=== PATIENT | female | born 1960 | race American Indian/Alaskan Native ===

== ENCOUNTER 2020-11-24 21:43 | Inpatient (IN) | payer OTHER ==
--- NOTE | 2020-11-24 22:09 | Emergency Department Report ---
- General Stated complaint: HYPERGLYCEMIA Time Seen by Provider: 11/24/20 21:56 - History of Present Illness Initial comments: 60-year-old female, history of hypertension and diabetes, presents to ED with generalized weakness x6 days. Patient states she has been feeling weak, unable to go to work. Patient states her daughter called EMS so that patient could come to the ER for evaluation. EMS reports Accu-Chek read high. EMS also reported normal vitals en route. However, as nurse placed patient on monitor, her O2 sats showed 57% on room air. She denies any fever, cough, shortness of breath, nausea, vomiting, headache, body aches, loss of smell or taste. Patient denies any known contact with anyone who has tested positive for COVID-19. MD Complaint: generalized weakness -: days(s) (6) Location: generalized Severity: moderate Quality: other (painless) Consistency: constant Improves with: none Worsens with: none Associated Symptoms: denies other symptoms. denies: chest pain, fever/chills, headaches, nausea/vomiting, shortness of breath - Related Data Allergies Allergy/AdvReac Type Severity Reaction Status Date / Time No Known Allergies Allergy Verified 11/25/20 00:33 ED Review of Systems ROS: Stated complaint: HYPERGLYCEMIA Other details as noted in HPI Comment: All other systems reviewed and negative Constitutional: malaise, weakness. denies: chills, fever ENT: other (Denies loss of smell or taste) Respiratory: denies: cough, shortness of breath Cardiovascular: denies: chest pain Gastrointestinal: denies: abdominal pain, nausea, vomiting, diarrhea Musculoskeletal: denies: myalgia Neurological: denies: headache ED Physical Exam - General General appearance: alert, in no apparent distress - Head Head exam: Present: atraumatic, normocephalic - Eye Eye exam: Present: normal appearance - ENT ENT exam: Present: mucous membranes moist - Neck Neck exam: Present: normal inspection - Respiratory Respiratory exam: Present: normal lung sounds bilaterally. Absent: respiratory distress - Cardiovascular Cardiovascular Exam: Present: regular rate, normal rhythm - GI/Abdominal GI/Abdominal exam: Present: soft. Absent: distended, tenderness - Extremities Exam Extremities exam: Present: normal inspection - Neurological Exam Neurological exam: Present: alert, oriented X3, other (mentation is somewhat slow) - Psychiatric Psychiatric exam: Present: normal affect, normal mood - Skin Skin exam: Present: warm, dry, intact, normal color ED Course Vital Signs 11/24/20 11/24/20 11/24/20 22:04 22:22 22:39 Temperature 99 F Pulse Rate 74 Respiratory 20 20 Rate Blood Pressure Blood Pressure 186/94 [Right] O2 Sat by Pulse 57 L 95 100 Oximetry 11/24/20 11/24/20 11/24/20 22:45 23:00 23:15 Temperature Pulse Rate 72 81 80 Respiratory 20 20 18 Rate Blood Pressure 211/92 183/87 198/96 Blood Pressure [Right] O2 Sat by Pulse 100 75 L 90 Oximetry 11/24/20 11/25/20 11/25/20 23:30 00:00 00:03 Temperature Pulse Rate 74 76 78 Respiratory 15 22 Rate Blood Pressure 207/94 210/95 210/95 Blood Pressure [Right] O2 Sat by Pulse 99 100 Oximetry 11/25/20 11/25/20 00:31 01:01 Temperature Pulse Rate Respiratory Rate Blood Pressure 208/88 156/63 Blood Pressure [Right] O2 Sat by Pulse 100 96 Oximetry - Reevaluation(s) Reevaluation #1: 11/24/20 22:30 Pt placed on HFNC. O2 sats now 100% - Consultations Consultation #1: 11/25/20 00:01 Spoke with Simba Valente on-call physician. States patient should stay here at [facility]. ED Medical Decision Making - Lab Data Result diagrams: 11/24/20 22:32 11/24/20 22:32 - EKG Data -: EKG Interpreted by Sc EKG shows normal: sinus rhythm, axis, intervals, QRS complexes, ST-T waves Rate: normal - EKG Data Interpretation: no acute changes - Radiology Data Radiology results: report reviewed, image reviewed - Medical Decision Making 61-year-old female presents to ED for generalized weakness. Patient found to be hypoxic, with room air sats of 57%. Patient placed on high flow nasal cannula which improved oxygen to 100%. ABG shows pO2 of 38. Chest x-ray shows bilateral pneumonia. This is likely COVID-19. Patient denies any other symptoms such as cough, fever, vomiting, diarrhea, loss of smell or taste. Blood cultures drawn. Rocephin, azithromycin, Decadron given. Lactic acid is normal. Remainder of labs show some acute renal failure with BUN and creatinine of 42 and 2.1. Troponin is slightly elevated at 0.076, possibly due to renal function. Patient denies any chest pain. EKG shows no ST changes. Glucose is elevated at 720, however patient does not appear to be in DKA. There are no serum ketones present, bicarb is normal, anion gap is normal. Patient given 500 cc bolus of IV fluids and 10 units of insulin. Patient also hypertensive with systolic BP in the 200s. IV hydralazine 10 mg given with improvement of blood pressure. Patient will be admitted to hospitalist, Dr. Rao, for further management. - Differential Diagnosis COVID-19, DKA, hyperglycemia Critical Care Time: Yes Critical care time in (mins) excluding proc time.: 35 Critical care attestation.: If time is entered above; I have spent that time in minutes in the direct care of this critically ill patient, excluding procedure time. Critical Care Time: 35 min ED Disposition Clinical Impression: Acute respiratory failure with hypoxia, Pneumonia, Suspected 2019 novel coronavirus infection, Acute renal failure, Hyperglycemia, Elevated troponin, Hypertensive urgency Disposition: OP ADMIT IP TO THIS HOSP Is pt being admited?: Yes Condition: Stable Time of Disposition: 00:01
[2020-11-24 22:50] LABS: ABG HCO3 23.6 mmol/L (20.0-26.0); ABG Methemoglobin 0.8 % (0.0-1.5); ABG PCO2 38.7 mm Hg; ABG PH 7.403 pH Units (7.350-7.450)
[2020-11-24 22:55] LABS: ABG PO2 38.2 mm Hg (80.0-90.0)
[2020-11-24] MEDS ORDERED: AZITHROMYCIN 250 MG TAB PO ONE (23:05)
[2020-11-24] MEDS ORDERED: cefTRIAXone/NS 1 GM/50 ML 1 GM/50 ML BAG IV ONE (23:05)
[2020-11-24] MEDS ORDERED: DEXAMETHASONE 4 MG TAB PO ONE (23:05)
[2020-11-24 23:14] LABS: Basophils % (Auto) 0.2 % (0.0-1.8); Hematocrit 34.1 % (30.3-42.9); Hemoglobin 10.7 gm/dl (10.1-14.3); Lymphocytes # (Auto) 0.7 K/mm3 (1.2-5.4); Lymphocytes % (Auto) 6.9 % (13.4-35.0); Mean Corpuscular HGB Conc 31 % (30-34); Mean Corpuscular Volume 88 fl (79-97); Monocytes # (Auto) 0.7 K/mm3 (0.0-0.8); Monocytes % (Auto) 6.4 % (0.0-7.3); Platelet Count 430 K/mm3 (140-440); Red Blood Count 3.86 M/mm3 (3.65-5.03); Red Cell Distribution Width 13.4 % (13.2-15.2)
[2020-11-24 23:21] LABS: INR 1.08 (0.87-1.13)
[2020-11-24 23:22] LABS: Partial Thromboplastin Time 31.1 Sec. (24.2-36.6)
[2020-11-24 23:23] LABS: Albumin 2.5 g/dL (3.9-5); Calcium 7.7 mg/dL (8.4-10.2)
--- NOTE | 2020-11-24 23:34 | XRay Report ---
CHEST 1 VIEW 11:04 PM INDICATION / CLINICAL INFORMATION: Hypoxia and weakness. COMPARISON: None available. FINDINGS: SUPPORT DEVICES: None. HEART / MEDIASTINUM: The heart size is borderline. Pulmonary vasculature is difficult to evaluate. Th ere is mild calcification in the aortic arch without aneurysm. LUNGS / PLEURA: There are multifocal patchy parenchymal opacities scattered throughout both lungs, ba silar predominant. No pleural effusion. No pneumothorax. ADDITIONAL FINDINGS: No significant additional findings. IMPRESSION: 1. Moderate multifocal patchy parenchymal opacities bilaterally are nonspecific. Atypical causes of p neumonia, including viral pneumonia, should be considered. Signer Name: Isaac Castelan MD Signed: 11/24/2020 11:30 PM Workstation Name: [id number]
[2020-11-24 23:35] LABS: Chol/HDL Ratio 3.88 %
[2020-11-24 23:35] LABS: Bilirubin,Urine NEG (Negative); Blood,Urine NEG (Negative); Color,Urine Yellow (Yellow); Mucus,Urine FEW /HPF; Urobilinogen,Urine < 2.0 mg/dL (<2.0)
[2020-11-24 23:36] LABS: C-Reactive Protein 32.5 mg/dL (0.00-1.30)
[2020-11-24] MEDS ORDERED: SODIUM CHLORIDE 0.9% 500 ML 500 ML IV ONE (23:38)
[2020-11-24] MEDS ORDERED: INSULIN REGULAR, HUMAN 100 UNITS/1 ML IV ONE (23:38)
[2020-11-24 23:41] LABS: Protein,Urine >500 mg/dL (Negative)
[2020-11-24] MEDS ORDERED: hydrALAZINE 20 MG/1 ML INJ IV ONE (23:42)
[2020-11-25] MEDS ORDERED: ONDANSETRON 4 MG/2 ML INJ IV PRN (00:25)
[2020-11-25] MEDS ORDERED: DEXTROSE 50% IN WATER (25GM) 50 ML SYRINGE IV PRN (00:25)
[2020-11-25] MEDS ORDERED: MAGNESIUM HYDROXIDE (MOM) ORAL LIQD UDC PO PRN (00:25)
[2020-11-25] MEDS ORDERED: ACETAMINOPHEN 325 MG TAB PO PRN (00:25)
[2020-11-25] MEDS ORDERED: MORPHINE 2 MG/1 ML INJ IV PRN (00:25)
--- NOTE | 2020-11-25 00:40 | History and Physical Report ---
History of Present Illness Date of examination: 11/25/20 Date of admission: 11/25/20 00:03 Chief complaint: Generalized body weakness History of present illness: C1-year-old female with known history of hypertension and diabetes mellitus presenting to the emergency room today complaining of generalized weakness which has been ongoing for about 6 days. She denies any fever or chills, no cough , no shortness of breath, no chest pain, no nausea vomiting, no diarrhea. Patient denies any sick contacts and no recent travel, denies any contact with anyone with COVID-19. She has not been able to go to work because of generalized weakness. She was encouraged to report to the emergency room by her daughter. EMS was subsequently called and Accu-Chek was said to be high. Upon arrival in the emergency room initial oxygen saturation was said to be in the 50s on room air. She was immediately placed on high flow oxygen with significant improvement. Work-up in the emergency room, chest x-ray reveals bilateral infiltrates concerning for viral pneumonia. Patient is being admitted with pneumonia, hypoxia and will rule out COVID-19. Past History Past Medical History: diabetes Past Surgical History: No surgical history Social history: no significant social history Family history: no significant family history Medications and Allergies Allergies Allergy/AdvReac Type Severity Reaction Status Date / Time No Known Allergies Allergy Verified 11/25/20 00:33 Active Meds: Active Medications Acetaminophen (Acetaminophen 325 Mg Tab) 650 mg PO Q4H PRN PRN Reason: Pain MILD(1-3)/Fever >100.5/YING Dextrose (Dextrose 50% In Water (25gm) 50 Ml Syringe) 50 ml IV Q30MIN PRN; Protocol PRN Reason: Hypoglycemia Heparin Sodium (Porcine) (Heparin 5,000 Unit/1 Ml Vial) 5,000 unit SUB-Q Q8HR TANYA Ceftriaxone Sodium (Rocephin/Ns 2 Gm/100 Ml) 2 gm in 100 mls @ 200 mls/hr IV Q24H TANYA; Protocol Azithromycin (Zithromax/Ns) 500 mg in 250 mls @ 250 mls/hr IV Q24H TANYA; Protocol Insulin Human Lispro (Insulin Lispro 100 Unit/Ml) 0 unit SUB-Q ACHS TANYA; Protocol Magnesium Hydroxide (Magnesium Hydroxide (Mom) Oral Liqd Udc) 30 ml PO Q4H PRN PRN Reason: Constipation Morphine Sulfate (Morphine 2 Mg/1 Ml Inj) 2 mg IV Q4H PRN PRN Reason: Pain, Moderate (4-6) Ondansetron HCl (Ondansetron 4 Mg/2 Ml Inj) 4 mg IV Q8H PRN PRN Reason: Nausea And Vomiting Sodium Chloride (Sodium Chloride 0.9% 10 Ml Flush Syringe) 10 ml IV BID TANYA Sodium Chloride (Sodium Chloride 0.9% 10 Ml Flush Syringe) 10 ml IV PRN PRN PRN Reason: LINE FLUSH Review of Systems Constitutional: fatigue, weakness, no fever, no chills Ears, nose, mouth and throat: no nasal congestion, no sore throat Cardiovascular: no chest pain, no palpitations Respiratory: no cough, no shortness of breath Gastrointestinal: no abdominal pain, no nausea, no vomiting, no diarrhea Genitourinary Female: no flank pain, no dysuria, no hematuria, no nocturia Musculoskeletal: no neck pain, no low back pain Integumentary: no rash, no pruritis Neurological: no headaches, no confusion Psychiatric: no anxiety, no depression Exam - Constitutional Vitals: Temp Pulse Resp BP Pulse Ox 99 F 78 22 210/95 100 11/24/20 22:04 11/25/20 00:03 11/25/20 00:00 11/25/20 00:03 11/25/20 00:00 General appearance: Present: mild distress, well-nourished - EENT Eyes: Present: PERRL, EOM intact. Absent: scleral icterus ENT: hearing intact, clear oral mucosa, dentition normal - Neck Neck: Present: supple, normal ROM - Respiratory Respiratory effort: normal Respiratory: bilateral: diminished - Cardiovascular Rhythm: regular Heart Sounds: Present: S1 & S2. Absent: gallop, systolic murmur, diastolic murmur, rub, click - Extremities Extremities: no ischemia, pulses intact, pulses symmetrical, No edema, normal temperature, normal color, Full ROM Peripheral Pulses: within normal limits - Abdominal General gastrointestinal: Present: soft, non-tender, non-distended, normal bowel sounds. Absent: mass - Integumentary Integumentary: Present: clear, warm, dry. Absent: rash - Musculoskeletal Musculoskeletal: strength equal bilaterally - Psychiatric Psychiatric: appropriate mood/affect, intact judgment & insight, memory intact, cooperative - Neurologic Neurologic: CNII-XII intact, no focal deficits, moves all extremities HEART Score - HEART Score Troponin: Troponin T 0.076 ng/mL (0.00-0.029) H 11/24/20 22:32 Results - Labs CBC & Chem 7: 11/24/20 22:32 11/24/20 22:32 Labs: Abnormal lab results 11/24/20 11/24/20 11/24/20 Range/Units 22:30 22:32 22:32 Lymph % (Auto) 6.9 L (13.4-35.0) % Lymph # (Auto) 0.7 L (1.2-5.4) K/mm3 Seg Neutrophils % 86.5 H (40.0-70.0) % Seg Neutrophils # 8.8 H (1.8-7.7) K/mm3 D-Dimer (0-234) ng/mlDDU ABG pO2 38.2 L* (80.0-90.0) mm Hg ABG O2 Saturation 67.0 L (95.0-99.0) % ABG Hemoglobin 9.3 L (12.0-16.0) gm/dl Oxyhemoglobin 65.3 L (95.0-99.0) % Sodium 133 L (137-145) mmol/L Chloride 94.8 L (98-107) mmol/L BUN 42 H (7-17) mg/dL Creatinine 2.1 H (0.6-1.2) mg/dL Glucose 720 H* (65-100) mg/dL Calcium 7.7 L (8.4-10.2) mg/dL Ferritin (10.0-200.0) ng/mL Lactate Dehydrogenase (91-180) units/L Troponin T 0.076 H (0.00-0.029) ng/mL C-Reactive Protein (0.00-1.30) mg/dL Albumin 2.5 L (3.9-5) g/dL Triglycerides 195 H (2-149) mg/dL 11/24/20 11/24/20 11/24/20 Range/Units 22:32 22:32 22:32 Lymph % (Auto) (13.4-35.0) % Lymph # (Auto) (1.2-5.4) K/mm3 Seg Neutrophils % (40.0-70.0) % Seg Neutrophils # (1.8-7.7) K/mm3 D-Dimer 790.01 H (0-234) ng/mlDDU ABG pO2 (80.0-90.0) mm Hg ABG O2 Saturation (95.0-99.0) % ABG Hemoglobin (12.0-16.0) gm/dl Oxyhemoglobin (95.0-99.0) % Sodium (137-145) mmol/L Chloride (98-107) mmol/L BUN (7-17) mg/dL Creatinine (0.6-1.2) mg/dL Glucose (65-100) mg/dL Calcium (8.4-10.2) mg/dL Ferritin 637.1 H (10.0-200.0) ng/mL Lactate Dehydrogenase 770 H (91-180) units/L Troponin T (0.00-0.029) ng/mL C-Reactive Protein 32.50 H (0.00-1.30) mg/dL Albumin (3.9-5) g/dL Triglycerides (2-149) mg/dL Assessment and Plan - Patient Problems (1) Pneumonia Current Visit: Yes Status: Acute Plan to address problem: Patient started on empiric IV antibiotics. We will await culture results. (2) Suspected 2019 novel coronavirus infection Current Visit: Yes Status: Acute Plan to address problem: Patient placed on isolation precautions. Will await COVID-19 testing. Patient has been placed on IV steroid. Consult placed to infectious disease for evaluation and recommendation. (3) Acute respiratory failure with hypoxia Current Visit: Yes Status: Acute Plan to address problem: Secondary to the underlying pneumonia. Patient placed on high flow oxygen. We will keep O2 saturation greater or equal to 94%. Consult also placed to senior packaging engineer for evaluation. (4) Acute renal failure Current Visit: Yes Status: Acute Plan to address problem: Patient will be given gentle IV hydration. Will monitor BUN and creatinine. Consult placed to nephrology for evaluation. (5) Elevated troponin Current Visit: Yes Status: Acute Plan to address problem: Possibly secondary to the renal insufficiency. Will monitor troponin levels. (6) DVT prophylaxis Current Visit: Yes Status: Acute Plan to address problem: Patient placed on subcutaneous heparin. (7) Full code status Current Visit: Yes Status: Acute Plan to address problem: Patient is full code.
[2020-11-25] MEDS ORDERED: INSULIN REGULAR, HUMAN 100 UNITS/1 ML IV ONE ×2 (00:50→08:45)
[2020-11-25] MEDS: HEPARIN 5,000 UNIT/1 ML VIAL SUB-Q SCH ×3 (05:54→21:41)
[2020-11-25] MEDS: INSULIN LISPRO 100 UNIT/ML SUB-Q SCH ×4 (08:41→21:59)
[2020-11-25] MEDS ORDERED: AZITHROMYCIN/NS 500 MG/250 ML 500 MG/250 ML BAG IV SCH (10:00)
[2020-11-25] MEDS: dexAMETHasone 4 MG/ML VIAL IV SCH (10:12)
--- NOTE | 2020-11-25 11:40 | Consultation ---
History of Present Illness Consult date: 11/25/20 Requesting physician: MYAH RASCON Reason for consult: pneumonia, other (Acute Hypoxemic Respiratory Failure; PUI COVID-19) History of present illness: PULMONARY/CCM CONSULT NOTE (Full dictation # [id number]) Please see dictated notes for full details Past History Past Medical History: diabetes Past Surgical History: No surgical history Social history: no significant social history Family history: no significant family history Medications and Allergies Allergies Allergy/AdvReac Type Severity Reaction Status Date / Time No Known Allergies Allergy Verified 11/25/20 00:33 Home Medications Medication Instructions Recorded Confirmed Last Taken Type Metformin HCl [metFORMIN] 1,000 mg PO BID 11/25/20 11/25/20 Unknown History amLODIPine [Norvasc] 5 mg PO DAILY 11/25/20 11/25/20 Unknown History glipiZIDE [Glucotrol] 20 mg PO BID 11/25/20 11/25/20 Unknown History hydroCHLOROthiazide 12.5 mg PO BID 11/25/20 11/25/20 Unknown History [Hydrochlorothiazide] lisinopriL [Zestril] 20 mg PO BID 11/25/20 11/25/20 Unknown History Active Meds: Active Medications Acetaminophen (Acetaminophen 325 Mg Tab) 650 mg PO Q4H PRN PRN Reason: Pain MILD(1-3)/Fever >100.5/YING Azithromycin (Azithromycin 250 Mg Tab) 500 mg PO QHS TANYA Stop: 11/28/20 22:01 Dexamethasone (Dexamethasone 4 Mg/Ml Vial) 6 mg IV Q24HR TANYA Stop: 12/03/20 10:01 Last Admin: 11/25/20 10:12 Dose: 6 mg Documented by: Dextrose (Dextrose 50% In Water (25gm) 50 Ml Syringe) 50 ml IV Q30MIN PRN; Protocol PRN Reason: Hypoglycemia Heparin Sodium (Porcine) (Heparin 5,000 Unit/1 Ml Vial) 5,000 unit SUB-Q Q8HR TANYA Last Admin: 11/25/20 05:54 Dose: 5,000 unit Documented by: Ceftriaxone Sodium (Rocephin/Ns 2 Gm/100 Ml) 2 gm in 100 mls @ 200 mls/hr IV Q24H TANYA; Protocol Sodium Chloride (Nacl 0.9% 1000 Ml) 1,000 mls @ 75 mls/hr IV DIRECT TANYA REMDESIVIR 200 mg/ Sodium (Chloride) 250 mls @ 500 mls/hr IV ONCE ONE Stop: 11/25/20 11:39 REMDESIVIR 100 mg/ Sodium (Chloride) 250 mls @ 500 mls/hr IV Q24HR@2100 [facility] Stop: 11/29/20 21:29 Insulin Human Lispro (Insulin Lispro 100 Unit/Ml) 0 unit SUB-Q ACHS [facility]; Protocol Last Admin: 11/25/20 08:41 Dose: 8 unit Documented by: Magnesium Hydroxide (Magnesium Hydroxide (Mom) Oral Liqd Udc) 30 ml PO Q4H PRN PRN Reason: Constipation Morphine Sulfate (Morphine 2 Mg/1 Ml Inj) 2 mg IV Q4H PRN PRN Reason: Pain, Moderate (4-6) Ondansetron HCl (Ondansetron 4 Mg/2 Ml Inj) 4 mg IV Q8H PRN PRN Reason: Nausea And Vomiting Sodium Chloride (Sodium Chloride 0.9% 10 Ml Flush Syringe) 10 ml IV BID [facility] Last Admin: 11/25/20 10:13 Dose: 10 ml Documented by: Sodium Chloride (Sodium Chloride 0.9% 10 Ml Flush Syringe) 10 ml IV PRN PRN PRN Reason: LINE FLUSH Sodium Chloride (Sodium Chloride 0.9% 50 Ml Ivpb) 50 ml IV Q24HR@2100 [facility] Stop: 11/29/20 21:01 Physical Examination Vital signs: Vital Signs Temp Pulse Resp BP Pulse Ox 99 F 74 20 186/94 57 L 11/24/20 22:04 11/24/20 22:04 11/24/20 22:04 11/24/20 22:04 11/24/20 22:04 Results - Laboratory Findings CBC and BMP: 11/24/20 22:32 11/24/20 22:32 ABG ABG pH 7.403 pH Units (7.350-7.450) 11/24/20 22:30 ABG pCO2 38.7 mm Hg 11/24/20 22:30 ABG pO2 38.2 mm Hg (80.0-90.0) L* 11/24/20 22:30 ABG O2 Saturation 67.0 % (95.0-99.0) L 11/24/20 22:30 PT/INR, D-dimer PT 13.8 Sec. (12.2-14.9) 11/24/20 22:32 INR 1.08 (0.87-1.13) 11/24/20 22:32 D-Dimer 790.01 ng/mlDDU (0-234) H 11/24/20 22:32 Abnormal lab findings: Abnormal Labs 11/24/20 11/24/20 11/24/20 22:30 22:32 22:32 Lymph % (Auto) 6.9 L Lymph # (Auto) 0.7 L Seg Neutrophils % 86.5 H Seg Neutrophils # 8.8 H D-Dimer ABG pO2 38.2 L* ABG O2 Saturation 67.0 L ABG Hemoglobin 9.3 L Oxyhemoglobin 65.3 L Sodium 133 L Chloride 94.8 L BUN 42 H Creatinine 2.1 H Glucose 720 H* POC Glucose Hemoglobin A1c Lactic Acid Calcium 7.7 L Ferritin Lactate Dehydrogenase Troponin T 0.076 H C-Reactive Protein Albumin 2.5 L Triglycerides 195 H 11/24/20 11/24/20 11/24/20 22:32 22:32 22:32 Lymph % (Auto) Lymph # (Auto) Seg Neutrophils % Seg Neutrophils # D-Dimer 790.01 H ABG pO2 ABG O2 Saturation ABG Hemoglobin Oxyhemoglobin Sodium Chloride BUN Creatinine Glucose POC Glucose Hemoglobin A1c Lactic Acid Calcium Ferritin 637.1 H Lactate Dehydrogenase 770 H Troponin T C-Reactive Protein 32.50 H Albumin Triglycerides 11/25/20 11/25/20 11/25/20 00:47 00:58 00:58 Lymph % (Auto) Lymph # (Auto) Seg Neutrophils % Seg Neutrophils # D-Dimer ABG pO2 ABG O2 Saturation ABG Hemoglobin Oxyhemoglobin Sodium Chloride BUN Creatinine Glucose POC Glucose 522 H Hemoglobin A1c 16.1 H Lactic Acid 2.60 H* Calcium Ferritin Lactate Dehydrogenase Troponin T C-Reactive Protein Albumin Triglycerides 11/25/20 07:56 Lymph % (Auto) Lymph # (Auto) Seg Neutrophils % Seg Neutrophils # D-Dimer ABG pO2 ABG O2 Saturation ABG Hemoglobin Oxyhemoglobin Sodium Chloride BUN Creatinine Glucose POC Glucose 451 H Hemoglobin A1c Lactic Acid Calcium Ferritin Lactate Dehydrogenase Troponin T C-Reactive Protein Albumin Triglycerides
--- NOTE | 2020-11-25 13:06 | Consultation ---
History of Present Illness - Reason for Consult Consult date: 11/25/20 acute renal failure Requesting physician: MYAH RASCON - History of Present Illness This is a 60 yo F with past medical history of hypertension and diabetes mellitus, who presents to [facility] ER with complaints of generalized weakness for the past week. Pt denied any fever or chills, no cough , no shortness of breath, no chest pain, no nausea vomiting, no diarrhea. Patient denies any sick contacts and no recent travel, denies any contact with anyone with COVID-19. In ER patient was found to be hypoxic with O2 sat at 50s on RA, O2 Sat improved on high flow oxygen supplementation. CXR showed moderate multifocal patchy parenchymal opacities concerning for viral pneumonia. Labs also showed elevated BUN/Cr at 42/2.1 in the setting of severe hyperglycemia with serum glucose > 700s. Lactic acid level was 2.6 improved to 1.2 with IVF boluses. elevated Ferritin 637, LDH 770, CRP 32 noted. Patient was admitted for treatment of pneumonia, hypoxia and to rule out COVID-19 infection. renal consult is requested for management of EJ. Past History Past Medical History: diabetes Past Surgical History: No surgical history Social history: no significant social history Family history: no significant family history Medications and Allergies Allergies Allergy/AdvReac Type Severity Reaction Status Date / Time No Known Allergies Allergy Verified 11/25/20 00:33 Home Medications Medication Instructions Recorded Confirmed Last Taken Type Metformin HCl [metFORMIN] 1,000 mg PO BID 11/25/20 11/25/20 Unknown History amLODIPine [Norvasc] 5 mg PO DAILY 11/25/20 11/25/20 Unknown History glipiZIDE [Glucotrol] 20 mg PO BID 11/25/20 11/25/20 Unknown History hydroCHLOROthiazide 12.5 mg PO BID 11/25/20 11/25/20 Unknown History [Hydrochlorothiazide] lisinopriL [Zestril] 20 mg PO BID 11/25/20 11/25/20 Unknown History Active Meds: Active Medications Acetaminophen (Acetaminophen 325 Mg Tab) 650 mg PO Q4H PRN PRN Reason: Pain MILD(1-3)/Fever >100.5/YING Azithromycin (Azithromycin 250 Mg Tab) 500 mg PO QHS TANYA Stop: 11/28/20 22:01 Dexamethasone (Dexamethasone 4 Mg/Ml Vial) 6 mg IV Q24HR TANYA Stop: 12/03/20 10:01 Last Admin: 11/25/20 10:12 Dose: 6 mg Documented by: Dextrose (Dextrose 50% In Water (25gm) 50 Ml Syringe) 50 ml IV Q30MIN PRN; Protocol PRN Reason: Hypoglycemia Heparin Sodium (Porcine) (Heparin 5,000 Unit/1 Ml Vial) 5,000 unit SUB-Q Q8HR [facility] Last Admin: 11/25/20 05:54 Dose: 5,000 unit Documented by: Ceftriaxone Sodium (Rocephin/Ns 2 Gm/100 Ml) 2 gm in 100 mls @ 200 mls/hr IV Q24H [facility]; Protocol Sodium Chloride (Nacl 0.9% 1000 Ml) 1,000 mls @ 75 mls/hr IV DIRECT TANYA REMDESIVIR 200 mg/ Sodium (Chloride) 250 mls @ 500 mls/hr IV ONCE ONE Stop: 11/25/20 11:39 REMDESIVIR 100 mg/ Sodium (Chloride) 250 mls @ 500 mls/hr IV Q24HR@2100 TANYA Stop: 11/29/20 21:29 Insulin Human Lispro (Insulin Lispro 100 Unit/Ml) 0 unit SUB-Q ACHS [facility]; Protocol Last Admin: 11/25/20 08:41 Dose: 8 unit Documented by: Magnesium Hydroxide (Magnesium Hydroxide (Mom) Oral Liqd Udc) 30 ml PO Q4H PRN PRN Reason: Constipation Morphine Sulfate (Morphine 2 Mg/1 Ml Inj) 2 mg IV Q4H PRN PRN Reason: Pain, Moderate (4-6) Ondansetron HCl (Ondansetron 4 Mg/2 Ml Inj) 4 mg IV Q8H PRN PRN Reason: Nausea And Vomiting Sodium Chloride (Sodium Chloride 0.9% 10 Ml Flush Syringe) 10 ml IV BID [facility] Last Admin: 11/25/20 10:13 Dose: 10 ml Documented by: Sodium Chloride (Sodium Chloride 0.9% 10 Ml Flush Syringe) 10 ml IV PRN PRN PRN Reason: LINE FLUSH Sodium Chloride (Sodium Chloride 0.9% 50 Ml Ivpb) 50 ml IV Q24HR@2100 TANYA Stop: 11/29/20 21:01 Review of Systems Constitutional: weakness, malaise, lethargy Exam - Vital Signs Vital signs: Vital Signs Temp Pulse Resp BP Pulse Ox 99 F 74 20 186/94 57 L 11/24/20 22:04 11/24/20 22:04 11/24/20 22:04 11/24/20 22:04 11/24/20 22:04 - Physical Exam Narrative exam: Exam deferred d/t PPE preservation. Results - Lab Results 11/24/20 22:32 11/24/20 22:32 Most recent lab results ABG pH 7.403 pH Units (7.350-7.450) 11/24/20 22:30 ABG pCO2 38.7 mm Hg 11/24/20 22:30 ABG pO2 38.2 mm Hg (80.0-90.0) L* 11/24/20 22:30 ABG HCO3 23.6 mmol/L (20.0-26.0) 11/24/20 22:30 ABG O2 Saturation 67.0 % (95.0-99.0) L 11/24/20 22:30 Calcium 7.7 mg/dL (8.4-10.2) L 11/24/20 22:32 Assessment and Plan - Patient Problems (1) Acute renal failure Current Visit: Yes Status: Acute Plan to address problem: Acute kidney injury likely secondary to pre-renal azotemia in the setting of severe hyperglycemia, pneumonia. UA showed significant proteinuria > 500, suspect underlying diabetic nephropathy. Check Urine lytes, urin protein/Cr ratio. Check renal US to rule out obstructive nephropathy. cont IV NS at 75m/hr, cont supportive care for EJ, avoid nephrotoxins, NSAIDs, IV contrast. Will monitor lytes/renal parameters and make further recommendations. (2) Acute respiratory failure with hypoxia Current Visit: Yes Status: Acute Plan to address problem: O2 sat improved on high flow O2 now > 95%. follow pulmonary recommendations (3) Suspected 2019 novel coronavirus infection Current Visit: Yes Status: Acute Plan to address problem: Patient placed on isolation precautions. pending COVID-19 testing. patient initiated on dexamethasone IV along with remdesivir. Follow ID recommendations (4) Hypertensive urgency Current Visit: Yes Status: Acute Plan to address problem: BP improved to target on IV hydralazine prn. will add amlodipine 10mg po qd starting in AM (5) Hyperglycemia Current Visit: Yes Status: Acute Plan to address problem: glucose control as per primary attending
--- NOTE | 2020-11-25 13:29 | Consultation ---
History of Present Illness - Reason for Consult Consult date: 11/25/20 COVID PUI Requesting physician: MYAH RASCON - History of Present Illness The patient is a 60-year-old female with diabetes and hypertension admitted to the hospital with weakness going on for about 6 days prior to admission. Upon evaluation in the ER, she was noted to be hypoxic on room air requiring supplemental oxygen. Chest x-ray showed bilateral pneumonia. Due to concerns for COVID-19, infectious diseases was consulted. Patient has severe hyperglycemia. D-dimer 790, procalcitonin 0.81, creatinine 2.1, CRP 32.5, ferritin 637, LDH 770. Patient is on high flow nasal cannula. Otherwise afebrile. Review of Systems: reviewed in the chart, unable to obtain, minimize risk of transmission Past History Past Medical History: diabetes Past Surgical History: No surgical history Social history: no significant social history Family history: no significant family history Medications and Allergies Allergies Allergy/AdvReac Type Severity Reaction Status Date / Time No Known Allergies Allergy Verified 11/25/20 00:33 Home Medications Medication Instructions Recorded Confirmed Last Taken Type Metformin HCl [metFORMIN] 1,000 mg PO BID 11/25/20 11/25/20 Unknown History amLODIPine [Norvasc] 5 mg PO DAILY 11/25/20 11/25/20 Unknown History glipiZIDE [Glucotrol] 20 mg PO BID 11/25/20 11/25/20 Unknown History hydroCHLOROthiazide 12.5 mg PO BID 11/25/20 11/25/20 Unknown History [Hydrochlorothiazide] lisinopriL [Zestril] 20 mg PO BID 11/25/20 11/25/20 Unknown History Active Meds: Active Medications Acetaminophen (Acetaminophen 325 Mg Tab) 650 mg PO Q4H PRN PRN Reason: Pain MILD(1-3)/Fever >100.5/YING Amlodipine Besylate (Amlodipine 10 Mg Tab) 10 mg PO QDAY TANYA Azithromycin (Azithromycin 250 Mg Tab) 500 mg PO QHS TANYA Stop: 11/28/20 22:01 Dexamethasone (Dexamethasone 4 Mg/Ml Vial) 6 mg IV Q24HR TANYA Stop: 12/03/20 10:01 Last Admin: 11/25/20 10:12 Dose: 6 mg Documented by: Dextrose (Dextrose 50% In Water (25gm) 50 Ml Syringe) 50 ml IV Q30MIN PRN; Protocol PRN Reason: Hypoglycemia Heparin Sodium (Porcine) (Heparin 5,000 Unit/1 Ml Vial) 5,000 unit SUB-Q Q8HR [facility] Last Admin: 11/25/20 05:54 Dose: 5,000 unit Documented by: Ceftriaxone Sodium (Rocephin/Ns 2 Gm/100 Ml) 2 gm in 100 mls @ 200 mls/hr IV Q24H [facility]; Protocol Sodium Chloride (Nacl 0.9% 1000 Ml) 1,000 mls @ 75 mls/hr IV DIRECT TANYA REMDESIVIR 200 mg/ Sodium (Chloride) 250 mls @ 500 mls/hr IV ONCE ONE Stop: 11/25/20 11:39 REMDESIVIR 100 mg/ Sodium (Chloride) 250 mls @ 500 mls/hr IV Q24HR@2100 TANYA Stop: 11/29/20 21:29 Insulin Human Lispro (Insulin Lispro 100 Unit/Ml) 0 unit SUB-Q ACHS [facility]; Protocol Last Admin: 11/25/20 08:41 Dose: 8 unit Documented by: Magnesium Hydroxide (Magnesium Hydroxide (Mom) Oral Liqd Udc) 30 ml PO Q4H PRN PRN Reason: Constipation Morphine Sulfate (Morphine 2 Mg/1 Ml Inj) 2 mg IV Q4H PRN PRN Reason: Pain, Moderate (4-6) Ondansetron HCl (Ondansetron 4 Mg/2 Ml Inj) 4 mg IV Q8H PRN PRN Reason: Nausea And Vomiting Sodium Chloride (Sodium Chloride 0.9% 10 Ml Flush Syringe) 10 ml IV BID [facility] Last Admin: 11/25/20 10:13 Dose: 10 ml Documented by: Sodium Chloride (Sodium Chloride 0.9% 10 Ml Flush Syringe) 10 ml IV PRN PRN PRN Reason: LINE FLUSH Sodium Chloride (Sodium Chloride 0.9% 50 Ml Ivpb) 50 ml IV Q24HR@2100 [facility] Stop: 11/29/20 21:01 Physical Examination - Physical Exam Narrative exam: Physical Exam (reviewed in chart to minimize risk of transmission) Constitutional: deferred Head, Ears, Nose: deferred Eyes: deferred Neck: deferred Oral: deferred Cardiovascular: deferred Respiratory: deferred GI: deferred Musculoskeletal: deferred Skin: deferred Hem/Lymphatic: deferred Psych: deferred Neurological: deferred - Constitutional Vitals: Vital Signs Temp Pulse Resp BP Pulse Ox 98.5 F 67 18 167/76 95 11/25/20 12:35 11/25/20 12:35 11/25/20 12:35 11/25/20 12:35 11/25/20 12:35 Temperature -Last 24 Hours Temperature 98.5 F Temperature 98.8 F Temperature 99.5 F Temperature 99 F Results - Labs CBC & Chem 7: 11/24/20 22:32 11/24/20 22:32 Labs: Abnormal lab results 11/24/20 11/24/20 11/24/20 Range/Units 22:30 22:32 22:32 Lymph % (Auto) 6.9 L (13.4-35.0) % Lymph # (Auto) 0.7 L (1.2-5.4) K/mm3 Seg Neutrophils % 86.5 H (40.0-70.0) % Seg Neutrophils # 8.8 H (1.8-7.7) K/mm3 D-Dimer (0-234) ng/mlDDU ABG pO2 38.2 L* (80.0-90.0) mm Hg ABG O2 Saturation 67.0 L (95.0-99.0) % ABG Hemoglobin 9.3 L (12.0-16.0) gm/dl Oxyhemoglobin 65.3 L (95.0-99.0) % Sodium 133 L (137-145) mmol/L Chloride 94.8 L (98-107) mmol/L BUN 42 H (7-17) mg/dL Creatinine 2.1 H (0.6-1.2) mg/dL Glucose 720 H* (65-100) mg/dL POC Glucose (70-105) mg/dL Hemoglobin A1c (4-6) % Lactic Acid (0.7-2.0) mmol/L Calcium 7.7 L (8.4-10.2) mg/dL Ferritin (10.0-200.0) ng/mL Lactate Dehydrogenase (91-180) units/L Troponin T 0.076 H (0.00-0.029) ng/mL C-Reactive Protein (0.00-1.30) mg/dL Albumin 2.5 L (3.9-5) g/dL Triglycerides 195 H (2-149) mg/dL 11/24/20 11/24/20 11/24/20 Range/Units 22:32 22:32 22:32 Lymph % (Auto) (13.4-35.0) % Lymph # (Auto) (1.2-5.4) K/mm3 Seg Neutrophils % (40.0-70.0) % Seg Neutrophils # (1.8-7.7) K/mm3 D-Dimer 790.01 H (0-234) ng/mlDDU ABG pO2 (80.0-90.0) mm Hg ABG O2 Saturation (95.0-99.0) % ABG Hemoglobin (12.0-16.0) gm/dl Oxyhemoglobin (95.0-99.0) % Sodium (137-145) mmol/L Chloride (98-107) mmol/L BUN (7-17) mg/dL Creatinine (0.6-1.2) mg/dL Glucose (65-100) mg/dL POC Glucose (70-105) mg/dL Hemoglobin A1c (4-6) % Lactic Acid (0.7-2.0) mmol/L Calcium (8.4-10.2) mg/dL Ferritin 637.1 H (10.0-200.0) ng/mL Lactate Dehydrogenase 770 H (91-180) units/L Troponin T (0.00-0.029) ng/mL C-Reactive Protein 32.50 H (0.00-1.30) mg/dL Albumin (3.9-5) g/dL Triglycerides (2-149) mg/dL 11/25/20 11/25/20 11/25/20 Range/Units 00:47 00:58 00:58 Lymph % (Auto) (13.4-35.0) % Lymph # (Auto) (1.2-5.4) K/mm3 Seg Neutrophils % (40.0-70.0) % Seg Neutrophils # (1.8-7.7) K/mm3 D-Dimer (0-234) ng/mlDDU ABG pO2 (80.0-90.0) mm Hg ABG O2 Saturation (95.0-99.0) % ABG Hemoglobin (12.0-16.0) gm/dl Oxyhemoglobin (95.0-99.0) % Sodium (137-145) mmol/L Chloride (98-107) mmol/L BUN (7-17) mg/dL Creatinine (0.6-1.2) mg/dL Glucose (65-100) mg/dL POC Glucose 522 H (70-105) mg/dL Hemoglobin A1c 16.1 H (4-6) % Lactic Acid 2.60 H* (0.7-2.0) mmol/L Calcium (8.4-10.2) mg/dL Ferritin (10.0-200.0) ng/mL Lactate Dehydrogenase (91-180) units/L Troponin T (0.00-0.029) ng/mL C-Reactive Protein (0.00-1.30) mg/dL Albumin (3.9-5) g/dL Triglycerides (2-149) mg/dL 11/25/20 Range/Units 07:56 Lymph % (Auto) (13.4-35.0) % Lymph # (Auto) (1.2-5.4) K/mm3 Seg Neutrophils % (40.0-70.0) % Seg Neutrophils # (1.8-7.7) K/mm3 D-Dimer (0-234) ng/mlDDU ABG pO2 (80.0-90.0) mm Hg ABG O2 Saturation (95.0-99.0) % ABG Hemoglobin (12.0-16.0) gm/dl Oxyhemoglobin (95.0-99.0) % Sodium (137-145) mmol/L Chloride (98-107) mmol/L BUN (7-17) mg/dL Creatinine (0.6-1.2) mg/dL Glucose (65-100) mg/dL POC Glucose 451 H (70-105) mg/dL Hemoglobin A1c (4-6) % Lactic Acid (0.7-2.0) mmol/L Calcium (8.4-10.2) mg/dL Ferritin (10.0-200.0) ng/mL Lactate Dehydrogenase (91-180) units/L Troponin T (0.00-0.029) ng/mL C-Reactive Protein (0.00-1.30) mg/dL Albumin (3.9-5) g/dL Triglycerides (2-149) mg/dL - Imaging and Cardiology Chest x-ray: report reviewed, image reviewed (Chest x-ray showed bilateral pne umonia.) Assessment and Plan Cultures: SARS CoV2 PCR: Pending Blood culture: in process A/P: 60-year-old female with diabetes and hypertension: #Bilateral pneumonia: High suspicion for COVID-19 #Acute hypoxic respiratory failure: On HFNC #Diabetes mellitus, uncontrolled #EJ Recs: -IV/PO Dexamethasone 6 mg daily x 10 days -Remdesivir added -Continue empiric antibiotics due to elevated procalcitonin -prophylactic anticoagulation based on d-dimer per hospital protocol -trend ferritin, LDH, d-dimer, CRP every 2-3 days for risk stratification and to assess disease progression Sekou Person MD, FACP [facility] ([facility] O: [phone] F: [phone]
[2020-11-25] MEDS ORDERED: NON-FORMULARY EACH (Metformin Hcl [Metformin] 1,000 MG Tablet) PO SCH (13:45)
[2020-11-25] MEDS ORDERED: amLODIPine 5 MG TAB PO SCH (14:00)
[2020-11-25] MEDS: hydroCHLOROthiazide 12.5 MG CAP PO SCH ×2 (15:18→21:37)
[2020-11-25] MEDS: SODIUM CHLORIDE 0.9% 50 ML IVPB IV SCH ×2 (15:19→21:34)
[2020-11-25] MEDS: LISINOPRIL 20 MG TAB PO SCH ×2 (15:19→21:38)
[2020-11-25] MEDS ORDERED: REMDESIVIR 200 MG in SODIUM CHLORIDE 0.9% 250ML 250 ML IV ONE (16:00)
[2020-11-25] MEDS ORDERED: REMDESIVIR 100 MG VIAL IV ONE (16:00)
--- NOTE | 2020-11-25 16:13 | Event Note ---
Date: 11/25/20 Patient 50-year-old with a history of hypertension diabetes presented with increasing fatigue and weakness over a 6-day period of time. Upon presentation to the ED patient found to be hypoglycemic with sugars at 750 and hypoxic. Subsequent chest x-ray revealed bilateral [place] interstitial pattern consistent with viral pneumonia. Patient admitted for acute hypoxemic respiratory failure secondary to pneumonia suspected COVID-19 infection. At present patient remains on empiric antibiotics ID following. #2 acute renal failure appears to be secondary to vasomotor nephropathy. #3 increased troponin non-ST elevation type II #4 diabetes which is uncontrolled. Patient had a A1c of 16 upon presentation. Accu-Chek 750. Will place patient on NovoLog 70/30 15 units twice daily and titrate accordingly. Patient most likely require further titration because she is on dexamethasone for possible COVID-19 infection.
[2020-11-25] MEDS ORDERED: HEPARIN 10,000 UNITS/10 ML VIAL IV PRN (16:24)
[2020-11-25] MEDS ORDERED: HEPARIN/ 0.45% NACL DRIP 25,000 UNIT/500 ML BAG IV SCH (17:00)
[2020-11-25] MEDS ORDERED: amLODIPine 5 MG TAB PO ONE (17:00)
[2020-11-25] MEDS: metFORMIN 500 MG TAB PO SCH (17:12)
[2020-11-25] MEDS: hydrALAZINE 25 MG TAB PO SCH ×2 (17:12→21:37)
[2020-11-25 18:20] LABS: INR 1.04 (0.87-1.13)
[2020-11-25 18:21] LABS: Partial Thromboplastin Time 30.5 Sec. (24.2-36.6)
--- NOTE | 2020-11-25 19:20 | Consultation ---
PULMONARY CRITICAL CARE CONSULT CONSULTING PHYSICIAN: Dr. Leland Rao. REASON FOR CONSULTATION: Acute hypoxemic respiratory failure, COVID-19 infection. CHIEF COMPLAINT AND HISTORY OF PRESENT ILLNESS: The patient is a now 60-year-old female with past medical history significant amongst other things for a diagnosis of diabetes and obesity, who presented to the Emergency Room complaining of generalized fatigue, had been going on for about a week. She states her daughter finally talked her into coming to the hospital. She denied fevers or chills. She denied cough or expectoration. She denied any new onset leg pain or swelling either unilaterally or bilaterally. She denied any known contact with anyone with COVID-19 infection. She denies a history of tobacco use or abuse. She was evaluated in the Emergency Room and was found to be hypoxemic, O2 sats in 50s on room air. X-ray revealed bilateral pneumonias and COVID-19 test has just been reported positive. We are asked to assist with management. When I stopped by to see her, she was resting in bed. She was on supplemental oxygen, but requiring 100% FiO2 via the high flow nasal cannula. At the time, the flow rate was at 20 liters. She denied nausea, vomiting, or overt aspiration. This really is as much of the history of presentation as I have. PAST MEDICAL HISTORY: Obesity, diabetes, and hypertension. PAST SURGICAL HISTORY: Denies. MEDICATIONS: She was on at the time I stopped by to see were reviewed. Pertinent medications included the following: Tylenol 650 mg p.o. q. 4 hours p.r.n. mild pain or fevers, amlodipine 5 mg p.o. daily, Zithromax 500 mg p.o. at bedtime, Rocephin 2 g IV daily, Decadron 6 mg IV daily, heparin 5000 units subcutaneous q. 8 hours, hydrochlorothiazide 12.5 mg p.o. b.i.d., insulin 70/30, 20 units subcutaneous I assume q. 12 hours as well as insulin via sliding scale, lisinopril 20 mg p.o. b.i.d., metformin 1 gram p.o. b.i.d., morphine 2 mg IV q. 4 hours p.r.n. moderate pain, and Zofran 4 mg IV q. 8 hours p.r.n. nausea and vomiting. She is on Rocephin and Zithromax. ALLERGIES: No known drug allergies. DIET: Obese lady. Denies acute weight loss or gain in the preceding few weeks to months. FAMILY AND SOCIAL HISTORY: Lives in the community, lives with her daughter. Denies alcohol, tobacco, or illicit drug use or abuse. FAMILY HISTORY: Otherwise, noncontributory. REVIEW OF SYSTEMS: No loss of consciousness. No new onset seizures. No new onset focal weakness. Denies gross hematochezia or melena. Denies gross hematuria or dysuria. No hematemesis. No hemoptysis. She had a dry cough. Mostly, she tells me. Denies heat or cold intolerance. Denies polydipsia or polyuria. Complete 13-system review of systems was obtained. Pertinent positives and/or negatives as in body of history above. Otherwise, they are noncontributory. PHYSICAL EXAMINATION: VITAL SIGNS: At presentation, she had a low-grade fever, temperature 99.0 degrees Fahrenheit with a pulse of 74, respiratory rate of 20, blood pressure was 186/94, and O2 sats were 57% at that time on room air. Blood pressure was as high as 211/92 in the Emergency Room. When I stopped by to see her, her O2 sats were 99% that was on 100% FiO2. GENERAL: She is an elderly obese lady, normocephalic, atraumatic, talking to me with mostly full sentences, but with mildly increased respiratory effort at rest. HEAD, EYES, EARS, NOSE AND THROAT: Anicteric. No conjunctival erythema. Oropharynx was moist. No gross jugular venous distention. She has a large neck circumference. No thyromegaly. NECK: Grossly, there were no palpable lymph nodes in the supraclavicular or submandibular lymph node chains. LUNGS: Auscultation of both lung baez was significant for bibasilar inspiratory crackles, no wheezing. HEART: Heart sounds 1 and 2 are heard at the time of my evaluation. Regular rate and rhythm without overt rubs or murmurs. ABDOMEN: Soft, full, protuberant. Bowel sounds are positive, nontender, no palpable hepatosplenomegaly. EXTREMITIES: Without overt digital clubbing, no cyanosis, no pedal edema. Pedal pulses are 2+ bilaterally. She has full range of motion. NEUROLOGIC: Pupils are equal, round, about 4 mm, reactive to light. Extraocular muscle movements were intact. She moves all 4 extremities spontaneously. SKIN: Normal turgor without overt cellulitis or rash in the areas examined. Please see the wound care nurse's notes for full description of her skin. PSYCHIATRIC: Mood was normal. Affect was appropriate. She had intact insight and judgment. LABORATORY DATA: From my review are as follows: Admission white cell count 10,200, hemoglobin 10.7, hematocrit 34.1, and platelet count 430. No manual differential. D-dimer was 790. Arterial blood gas showed a pH of 7.40, pCO2 of 39, pO2 of 38 that was on 21% FiO2. Serum sodium was 133, potassium 3.9, chloride 95, bicarbonate 27, BUN 42, creatinine 2.1, glucose was 720. Lactic acid level was 1.90 at presentation, got as high as 2.60, this morning down back now within normal limits. Ferritin elevated at 637. LDH up at 770. Troponin was up at 0.076. CRP was elevated at 32.5. Procalcitonin was slightly elevated at 0.81. Urinalysis negative for nitrites and leukocyte esterase. Coronavirus PCR test was positive. Two sets of blood cultures, no growth to date. Chest x-ray was done. I have reviewed the radiologist's interpretation and also reviewed the film, essentially shows borderline cardiomegaly, bilateral patchy infiltrates/consolidation mainly involving the lower lobes and some perihilar distribution, I would say moderate in the amount of infiltrates. No gross pneumothorax. I cannot rule out small bilateral pleural effusions, no gross bony fractures. ASSESSMENT: 1. Acute hypoxemic respiratory failure. 2. COVID-19 infection. 3. Bilateral pneumonia, likely viral. 4. History of diabetes. 5. Obesity. 6. Elevated serum inflammatory markers to include D-dimers, LDH, and CRP levels. PLAN: I do agree with current therapy. We will treat her empirically for community-acquired pneumonia for at least about 5 days of therapy. She is a candidate for and she is receiving respiratory therapy. We will continue systemic steroids with Decadron for severe hypoxemia related to COVID-19 infection. Of note, with the elevated D-dimers and other indices and with the absence of significant contraindication, I will put her on full-dose heparin and continue to trend the D-dimer level just as a result of the amount of oxygen she is requiring and real possibility of further decompensation considering the coagulopathy or hypercoagulable state associated with COVID-19. We will repeat the CBC, keep an eye on her hemoglobin and platelet counts. Bilevel positive airway pressure ventilation therapy will be offered on a p.r.n. basis. Oxygen will be weaned to keep sats greater than or equal to about 92%. Aspiration precautions will be maintained. She will be maintained in airborne and contact isolation. She is also going to be placed on GI prophylaxis with Pepcid, especially with her going on full anticoagulation. P.r.n. analgesia will be according to the pain score. Glycemic control will be targeted for blood glucose 140-180 mg/dL while critically ill. Flu and pneumonia vaccination will be addressed per protocol. Continued tobacco abstinence has been counseled. Thank you very much for the consult. We will follow along and make further recommendations as picture progresses/becomes clearer. She is critically ill on life-sustaining interventions including the 100% oxygen, at very high risk of from cardiopulmonary and hematologic system decompensation. I do note the elevated troponin and with overall COVID spectrum, I do think it is important that she is worked up for possible acute coronary syndrome. I will go ahead and place a Cardiology consult. A 12-lead EKG will be ordered if it has not already been done. I will repeat a troponin level, as that one was done yesterday. Flu and pneumonia vaccination will be addressed per protocol. Certainly some of this infiltrate could very well also be related to mild interstitial edema. Of note, I also note the kidney injury and I am assuming that it is an acute kidney injury. Nephrology has been consulted. We will follow their recommendations. Again, I have spent 35-40 minutes of critical care time without overlap and excluding any procedural time that may be necessary. JOB# [id number] BRITTANY/CARLITO
[2020-11-25] MEDS: cefTRIAXone/NS 2 GM/100 ML 2 GM/100 ML BAG IV SCH (21:33)
[2020-11-25] MEDS: FAMOTIDINE 20 MG TAB PO SCH (21:35)
[2020-11-25] MEDS: AZITHROMYCIN 250 MG TAB PO SCH (21:35)
[2020-11-26] MEDS: hydrALAZINE 25 MG TAB PO SCH ×3 (05:50→21:22)
[2020-11-26 06:46] LABS: Basophils # (Auto) 0.2 K/mm3 (0.0-0.1); Basophils % (Auto) 1.1 % (0.0-1.8); Hematocrit 32.6 % (30.3-42.9); Hemoglobin 10.6 gm/dl (10.1-14.3); Lymphocytes % (Auto) 6.4 % (13.4-35.0); Mean Corpuscular HGB Conc 33 % (30-34); Mean Corpuscular Volume 85 fl (79-97); Monocytes # (Auto) 0.9 K/mm3 (0.0-0.8); Monocytes % (Auto) 5.4 % (0.0-7.3); Platelet Count 561 K/mm3 (140-440); Red Blood Count 3.83 M/mm3 (3.65-5.03)
[2020-11-26 06:58] LABS: INR 1.13 (0.87-1.13)
[2020-11-26 07:05] LABS: Calcium 7.8 mg/dL (8.4-10.2)
[2020-11-26] MEDS ORDERED: amLODIPine 10 MG TAB PO SCH ×2 (08:00→10:00)
[2020-11-26] MEDS: INSULIN LISPRO 100 UNIT/ML SUB-Q SCH ×4 (08:19→22:37)
--- NOTE | 2020-11-26 08:57 | Progress Note ---
Assessment and Plan Assessment and plan: The patient is a 60-year-old female with diabetes and hypertension admitted to the hospital with weakness going on for about 6 days prior to admission. Upon evaluation in the ER, she was noted to be hypoxic on room air requiring supplemental oxygen. Chest x-ray showed bilateral pneumonia. Due to concerns for COVID-19, infectious diseases was consulted. Patient has severe hyperglycemia. D-dimer 790, procalcitonin 0.81, creatinine 2.1, CRP 32.5, ferritin 637, LDH 770. Patient is on high flow nasal cannula. Acute hypoxic respiratory failure COVID-19 bilateral pneumonia Sepsis Diabetes mellitus type 2 Acute kidney injury 11/26/2020. Continue IV dexamethasone 6 mg daily for total of 10 days. Continue remdesivir. Continue empiric antibiotics due to elevated procalcitonin. Continue prophylactic anticoagulation based on D-dimer per protocol. Trend inflammatory markers of ferritin, LDH, D-dimer and CRP. Continue O2 to maintain sats greater than 92%, wean as tolerated History Interval history: The patient is a 60-year-old female with diabetes and hypertension admitted to the hospital with weakness going on for about 6 days prior to admission. Upon evaluation in the ER, she was noted to be hypoxic on room air requiring supplemental oxygen. Chest x-ray showed bilateral pneumonia. Due to concerns for COVID-19, infectious diseases was consulted. Patient has severe hyperglycemia. D-dimer 790, procalcitonin 0.81, creatinine 2.1, CRP 32.5, ferritin 637, LDH 770. Patient is on high flow nasal cannula. No new issues overnight Hospitalist Physical - Constitutional Vitals: Temp Pulse Resp BP Pulse Ox 97.4 F L 63 20 145/78 98 11/26/20 05:41 11/26/20 05:50 11/26/20 05:41 11/26/20 05:50 11/26/20 08:09 General appearance: Present: mild distress, well-nourished HEART Score - HEART Score Troponin: Troponin T 0.025 ng/mL (0.00-0.029) 11/25/20 17:54 Results - Labs CBC & Chem 7: 11/26/20 05:11 11/26/20 05:11 Labs: Laboratory Last Values WBC 15.7 K/mm3 (4.5-11.0) H 11/26/20 05:11 RBC 3.83 M/mm3 (3.65-5.03) 11/26/20 05:11 Hgb 10.6 gm/dl (10.1-14.3) 11/26/20 05:11 Hct 32.6 % (30.3-42.9) 11/26/20 05:11 MCV 85 fl (79-97) 11/26/20 05:11 MCH 28 pg (28-32) 11/26/20 05:11 MCHC 33 % (30-34) 11/26/20 05:11 RDW 13.0 % (13.2-15.2) L 11/26/20 05:11 Plt Count 561 K/mm3 (140-440) H 11/26/20 05:11 Lymph % (Auto) 6.4 % (13.4-35.0) L 11/26/20 05:11 [place] % (Auto) 5.4 % (0.0-7.3) 11/26/20 05:11 Eos % (Auto) 0.0 % (0.0-4.3) 11/26/20 05:11 Baso % (Auto) 1.1 % (0.0-1.8) 11/26/20 05:11 Lymph # (Auto) 1.0 K/mm3 (1.2-5.4) L 11/26/20 05:11 [place] # (Auto) 0.9 K/mm3 (0.0-0.8) H 11/26/20 05:11 Eos # (Auto) 0.0 K/mm3 (0.0-0.4) 11/26/20 05:11 Baso # (Auto) 0.2 K/mm3 (0.0-0.1) H 11/26/20 05:11 Seg Neutrophils % 87.1 % (40.0-70.0) H 11/26/20 05:11 Seg Neutrophils # 13.6 K/mm3 (1.8-7.7) H 11/26/20 05:11 PT 14.4 Sec. (12.2-14.9) 11/26/20 05:11 INR 1.13 (0.87-1.13) 11/26/20 05:11 APTT 30.5 Sec. (24.2-36.6) 11/25/20 17:54 D-Dimer 790.01 ng/mlDDU (0-234) H 11/24/20 22:32 Heparin Anti-Xa Level 0.39 U.I./ml (0.3-0.7) 11/26/20 00:47 ABG pH 7.403 pH Units (7.350-7.450) 11/24/20 22:30 ABG pCO2 38.7 mm Hg 11/24/20 22:30 ABG pO2 38.2 mm Hg (80.0-90.0) L* 11/24/20 22:30 ABG HCO3 23.6 mmol/L (20.0-26.0) 11/24/20 22:30 ABG O2 Saturation 67.0 % (95.0-99.0) L 11/24/20 22:30 ABG O2 Content 8.6 (0.0-44) 11/24/20 22:30 ABG Base Excess -1.0 mmol/L (-2.0-3.0) 11/24/20 22:30 ABG Hemoglobin 9.3 gm/dl (12.0-16.0) L 11/24/20 22:30 ABG Carboxyhemoglobin 1.6 % (0.0-5.0) 11/24/20 22:30 ABG Methemoglobin 0.8 % (0.0-1.5) 11/24/20 22:30 Oxyhemoglobin 65.3 % (95.0-99.0) L 11/24/20 22:30 FiO2 21 % 11/24/20 22:30 Sodium 136 mmol/L (137-145) L 11/26/20 05:11 Potassium 3.9 mmol/L (3.6-5.0) 11/26/20 05:11 Chloride 99.2 mmol/L (98-107) 11/26/20 05:11 Carbon Dioxide 25 mmol/L (22-30) 11/26/20 05:11 Anion Gap 16 mmol/L 11/26/20 05:11 BUN 52 mg/dL (7-17) H 11/26/20 05:11 Creatinine 2.1 mg/dL (0.6-1.2) H 11/26/20 05:11 Estimated GFR 29 ml/min 11/26/20 05:11 BUN/Creatinine Ratio 25 % 11/26/20 05:11 Glucose 356 mg/dL (65-100) H 11/26/20 05:11 POC Glucose 353 mg/dL (70-105) H 11/26/20 07:56 Hemoglobin A1c 16.1 % (4-6) H 11/25/20 00:58 Ketones Quantitative Negative (Negative) 11/24/20 22:32 Lactic Acid 1.20 mmol/L (0.7-2.0) 11/25/20 05:07 Calcium 7.8 mg/dL (8.4-10.2) L 11/26/20 05:11 Ferritin 637.1 ng/mL (10.0-200.0) H 11/24/20 22:32 Total Bilirubin 0.30 mg/dL (0.1-1.2) 11/24/20 22:32 AST 34 units/L (5-40) 11/24/20 22:32 ALT 18 units/L (7-56) 11/24/20 22:32 Alkaline Phosphatase 99 units/L (35-129) 11/24/20 22:32 Lactate Dehydrogenase 770 units/L (91-180) H 11/24/20 22:32 Troponin T 0.025 ng/mL (0.00-0.029) 11/25/20 17:54 C-Reactive Protein 32.50 mg/dL (0.00-1.30) H 11/24/20 22:32 Total Protein 6.8 g/dL (6.3-8.2) 11/24/20 22:32 Albumin 2.5 g/dL (3.9-5) L 11/24/20 22:32 Albumin/Globulin Ratio 0.6 % 11/24/20 22:32 Triglycerides 195 mg/dL (2-149) H 11/24/20 22:32 Cholesterol 175 mg/dL (50-199) 11/24/20 22:32 LDL Cholesterol Direct 96 mg/dL (50-130) 11/24/20 22:32 HDL Cholesterol 45 mg/dL (40-59) 11/24/20 22:32 Cholesterol/HDL Ratio 3.88 % 11/24/20 22:32 Procalcitonin 0.81 ng/mL (<0.15) 11/24/20 22:32 Urine Color Yellow (Yellow) 11/24/20 Unknown Urine Turbidity Slightly-cloudy (Clear) 11/24/20 Unknown Urine pH 6.0 (5.0-7.0) 11/24/20 Unknown Ur Specific [place] 1.022 (1.003-1.030) 11/24/20 Unknown Urine Protein >500 mg/dL (Negative) 11/24/20 Unknown Urine Glucose (UA) >=500 mg/dL (Negative) 11/24/20 Unknown Urine Ketones Tr mg/dL (Negative) 11/24/20 Unknown Urine Blood Neg (Negative) 11/24/20 Unknown Urine Nitrite Neg (Negative) 11/24/20 Unknown Urine Bilirubin Neg (Negative) 11/24/20 Unknown Urine Urobilinogen < 2.0 mg/dL (<2.0) 11/24/20 Unknown Ur Leukocyte Esterase Neg (Negative) 11/24/20 Unknown Urine WBC (Auto) 1.0 /HPF (0.0-6.0) 11/24/20 Unknown Urine RBC (Auto) 1.0 /HPF (0.0-6.0) 11/24/20 Unknown U Epithel Cells (Auto) 2.0 /HPF (0-13.0) 11/24/20 Unknown Urine Mucus Few /HPF 11/24/20 Unknown Coronavirus (PCR) Positive (Negative) A 11/25/20 Unknown Microbiology: Microbiology 11/24/20 22:32 Peripheral/Venous Blood Culture - Preliminary NO GROWTH AFTER 24 HOURS 11/24/20 23:20 Peripheral/Venous Blood Culture - Preliminary NO GROWTH AFTER 24 HOURS Kapoor/IV: Voiding Method Toilet IV Catheter Type [Left Forearm INT / Saline Lock ] Active Medications - Current Medications Current Medications: Generic Name Dose Route Start Last Admin Trade Name Freq PRN Reason Stop Dose Admin Acetaminophen 650 mg 11/25/20 00:25 Acetaminophen 325 Mg Tab PO Q4H PRN Pain MILD(1-3)/Fever >100.5/YING Amlodipine Besylate 10 mg 11/26/20 10:00 Amlodipine 10 Mg Tab PO QDAY TANYA Azithromycin 500 mg 11/25/20 22:00 11/25/20 21:35 Azithromycin 250 Mg Tab PO 11/28/20 22:01 500 mg QHS TANYA Administration Dexamethasone 6 mg 11/25/20 10:00 11/25/20 10:12 Dexamethasone 4 Mg/Ml Vial IV 12/03/20 10:01 6 mg Q24HR TANYA Administration Dextrose 50 ml 11/25/20 00:25 Dextrose 50% In Water (25gm) 50 Ml Syringe IV Q30MIN PRN Hypoglycemia Protocol Famotidine 20 mg 11/25/20 22:00 11/25/20 21:35 Famotidine 20 Mg Tab PO 20 mg DAILY TANYA Administration Heparin Sodium (Porcine) 3,400 unit 11/25/20 16:24 11/25/20 17:10 Heparin 10,000 Units/10 Ml Vial 40 unit/kg (3400 unit) 3,400 unit IV Administration Q6H PRN Anti-Xa Assay < 0.1 units/ml Hydralazine HCl 25 mg 11/25/20 17:00 11/26/20 05:50 Hydralazine 25 Mg Tab PO 25 mg Q8HR TANYA Administration Hydrochlorothiazide 12.5 mg 11/25/20 14:00 11/25/20 21:37 Hydrochlorothiazide 12.5 Mg Cap PO 12.5 mg BID TANYA Administration Ceftriaxone Sodium 2 gm in 100 mls @ 200 mls/hr 11/25/20 22:00 11/25/20 21:33 Rocephin/Ns 2 Gm/100 Ml IV 200 mls/hr Q24H TANYA Administration Protocol Sodium Chloride 1,000 mls @ 75 mls/hr 11/25/20 06:30 Nacl 0.9% 1000 Ml IV DIRECT TANYA REMDESIVIR 100 mg/ Sodium 250 mls @ 500 mls/hr 11/26/20 21:00 Chloride IV 11/29/20 21:29 Q24HR@2100 TANYA Heparin Sodium/Sodium Chloride 25,000 unit in 500 mls @ 26 mls/hr 11/25/20 17:00 11/26/20 07:18 Heparin/ 0.45% Nacl-25,000 Unit/500 Ml IV 1,300 units/hr TITR TANYA 26 mls/hr Titration Protocol 1,300 UNITS/HR Insulin Human Isoph/Insulin Regular 20 unit 11/26/20 12:00 Insulin Nph/Regular 70/30 Inj SUB-Q 1200 TANYA Insulin Human Lispro 0 unit 11/25/20 07:30 11/26/20 08:19 Insulin Lispro 100 Unit/Ml SUB-Q 8 unit ACHS TANYA Administration Protocol Lisinopril 20 mg 11/25/20 14:00 11/25/20 21:38 Lisinopril 20 Mg Tab PO 20 mg BID TANYA Administration Magnesium Hydroxide 30 ml 11/25/20 00:25 Magnesium Hydroxide (Mom) Oral Liqd Udc PO Q4H PRN Constipation Metformin HCl 1,000 mg 11/25/20 17:00 11/25/20 17:12 Metformin 500 Mg Tab PO 1,000 mg BIDDIAB TANYA Administration Morphine Sulfate 2 mg 11/25/20 00:25 Morphine 2 Mg/1 Ml Inj IV Q4H PRN Pain, Moderate (4-6) Ondansetron HCl 4 mg 11/25/20 00:25 Ondansetron 4 Mg/2 Ml Inj IV Q8H PRN Nausea And Vomiting Sodium Chloride 10 ml 11/25/20 10:00 11/25/20 21:36 Sodium Chloride 0.9% 10 Ml Flush Syringe IV 10 ml BID TANYA Administration Sodium Chloride 10 ml 11/25/20 00:25 Sodium Chloride 0.9% 10 Ml Flush Syringe IV PRN PRN LINE FLUSH Sodium Chloride 50 ml 11/25/20 16:00 11/25/20 21:34 Sodium Chloride 0.9% 50 Ml Ivpb IV 11/28/20 21:01 50 ml Q24HR@2100 TANYA Administration Nutrition/Malnutrition Assess - Dietary Evaluation Nutrition/Malnutrition Findings: Nutrition Notes Start: 11/25/20 12:52 Freq: Status: Active Protocol: Document 11/25/20 12:53 EN (Rec: 11/25/20 12:59 EN [id number]) Co-Sign 11/25/20 12:53 MK Nutrition Notes Need for Assessment generated from: MD Order,Education Initial or Follow up Assessment Current Diagnosis Acute Kidney Injury,Diabetes, Hypertension Other Pertinent Diagnosis Suspected COVID-19, Pneu, ARF Current Diet Consistent CHO Labs/Tests POC BG 451 Hgb A1c 16.1 Pertinent Medications Decadron Humalog Humulin Height 5 ft 2 in Weight 86.183 kg [place] Body Weight (kg) 50.00 BMI 34.7 Weight Status Obese Subjective/Other Information MD order for diet education. Unable to reach pt by phone x2 . Per RN, pt consuming 100% of meals with a good appetite. RN denies N/V/D. Percent of energy/protein needs met: 100%/100% Burn Absent Trauma Absent GI Symptoms None Food Allergy No Current % PO Good (75-100%) Minimum of two criteria No physical signs of malnutrition #1 Nutrition Diagnosis No nutrition diagnosis at this time Is patient on ventilator? No Is Patient Ambulatory and/or Out of Bed Yes [facility] [ 1787.604 [id number]] Kcal/Kg value to use for calculation 18 Approximate Energy Requirements Using 1551 kcal/Kg Calculation Used for Recommendations Kcal/kg Additional Notes Protien: 0.8-1.2g/kg AdBW 68kg (54-82g) Fluid: 500mL + output Nutrition Intervention Change Diet Order: Continue current diet Goal #1 Meet at least 80% of energy and protein needs via PO Goal #2 Consistent CHO diet understanding Anticipated Discharge Needs: Consistent CHO Follow-Up By: 11/30/20 Additional Comments F/u for diet education and assessment
[2020-11-26] MEDS: FAMOTIDINE 20 MG TAB PO SCH (09:06)
[2020-11-26] MEDS: dexAMETHasone 4 MG/ML VIAL IV SCH (09:06)
[2020-11-26] MEDS: hydroCHLOROthiazide 12.5 MG CAP PO SCH ×2 (09:06→21:22)
[2020-11-26] MEDS: metFORMIN 500 MG TAB PO SCH (09:07)
[2020-11-26] MEDS: LISINOPRIL 20 MG TAB PO SCH (09:07)
--- NOTE | 2020-11-26 10:00 | Consultation ---
History of Present Illness Consult date: 11/26/20 Consult reason: elevated troponin History of present illness: 60-year old F with a history of hypertension and diabetes who presented with generalized weakness and shortness of breath. The chest x-ray shows bilateral patchy infiltrates and test results were positive for COVID-19 pneumonia. Cardiac consultation for mild elevated troponin. There were no report of chest pain. Troponin elevation likely related to acute kidney disease, creatinine 2.1. Initial labs also revealed uncontrolled diabetes, glucose of 720. EKG is in normal sinus rhythm with LVH, no acute ischemic changes. Past History Past Medical History: diabetes, hypertension Past Surgical History: No surgical history Social history: no significant social history Family history: no significant family history Medications and Allergies Allergies Allergy/AdvReac Type Severity Reaction Status Date / Time No Known Allergies Allergy Verified 11/25/20 00:33 Home Medications Medication Instructions Recorded Confirmed Last Taken Type Metformin HCl [metFORMIN] 1,000 mg PO BID 11/25/20 11/25/20 Unknown History amLODIPine [Norvasc] 5 mg PO DAILY 11/25/20 11/25/20 Unknown History glipiZIDE [Glucotrol] 20 mg PO BID 11/25/20 11/25/20 Unknown History hydroCHLOROthiazide 12.5 mg PO BID 11/25/20 11/25/20 Unknown History [Hydrochlorothiazide] lisinopriL [Zestril] 20 mg PO BID 11/25/20 11/25/20 Unknown History Active Meds: Active Medications Acetaminophen (Acetaminophen 325 Mg Tab) 650 mg PO Q4H PRN PRN Reason: Pain MILD(1-3)/Fever >100.5/YING Amlodipine Besylate (Amlodipine 10 Mg Tab) 10 mg PO QDAY [facility] Last Admin: 11/26/20 09:07 Dose: 10 mg Documented by: Azithromycin (Azithromycin 250 Mg Tab) 500 mg PO QHS TANYA Stop: 11/28/20 22:01 Last Admin: 11/25/20 21:35 Dose: 500 mg Documented by: Dexamethasone (Dexamethasone 4 Mg/Ml Vial) 6 mg IV Q24HR [facility] Stop: 12/03/20 10:01 Last Admin: 11/26/20 09:06 Dose: 6 mg Documented by: Dextrose (Dextrose 50% In Water (25gm) 50 Ml Syringe) 50 ml IV Q30MIN PRN; Protocol PRN Reason: Hypoglycemia Famotidine (Famotidine 20 Mg Tab) 20 mg PO DAILY [facility] Last Admin: 11/26/20 09:06 Dose: 20 mg Documented by: Heparin Sodium (Porcine) (Heparin 10,000 Units/10 Ml Vial) 3,400 unit 40 unit/kg (3400 unit) IV Q6H PRN PRN Reason: Anti-Xa Assay < 0.1 units/ml Last Admin: 11/25/20 17:10 Dose: 3,400 unit Documented by: Hydralazine HCl (Hydralazine 25 Mg Tab) 25 mg PO Q8HR [facility] Last Admin: 11/26/20 05:50 Dose: 25 mg Documented by: Hydrochlorothiazide (Hydrochlorothiazide 12.5 Mg Cap) 12.5 mg PO BID [facility] Last Admin: 11/26/20 09:06 Dose: 12.5 mg Documented by: Ceftriaxone Sodium (Rocephin/Ns 2 Gm/100 Ml) 2 gm in 100 mls @ 200 mls/hr IV Q24H [facility]; Protocol Last Admin: 11/25/20 21:33 Dose: 200 mls/hr Documented by: Sodium Chloride (Nacl 0.9% 1000 Ml) 1,000 mls @ 75 mls/hr IV DIRECT TANYA REMDESIVIR 100 mg/ Sodium (Chloride) 250 mls @ 500 mls/hr IV Q24HR@2100 TANYA Stop: 11/29/20 21:29 Heparin Sodium/Sodium Chloride (Heparin/ 0.45% Nacl-25,000 Unit/500 Ml) 25,000 unit in 500 mls @ 26 mls/hr IV TITR [facility]; Protocol Last Titration: 11/26/20 07:18 Dose: 1,300 units/hr, 26 mls/hr Documented by: Insulin Human Isoph/Insulin Regular (Insulin Nph/Regular 70/30 Inj) 20 unit SUB-Q BIDDIAB [facility] Insulin Human Lispro (Insulin Lispro 100 Unit/Ml) 0 unit SUB-Q ACHS [facility]; Protocol Last Admin: 11/26/20 08:19 Dose: 8 unit Documented by: Lisinopril (Lisinopril 20 Mg Tab) 20 mg PO BID [facility] Last Admin: 11/26/20 09:07 Dose: 20 mg Documented by: Magnesium Hydroxide (Magnesium Hydroxide (Mom) Oral Liqd Udc) 30 ml PO Q4H PRN PRN Reason: Constipation Morphine Sulfate (Morphine 2 Mg/1 Ml Inj) 2 mg IV Q4H PRN PRN Reason: Pain, Moderate (4-6) Ondansetron HCl (Ondansetron 4 Mg/2 Ml Inj) 4 mg IV Q8H PRN PRN Reason: Nausea And Vomiting Sodium Chloride (Sodium Chloride 0.9% 10 Ml Flush Syringe) 10 ml IV BID [facility] Last Admin: 11/26/20 09:08 Dose: 10 ml Documented by: Sodium Chloride (Sodium Chloride 0.9% 10 Ml Flush Syringe) 10 ml IV PRN PRN PRN Reason: LINE FLUSH Sodium Chloride (Sodium Chloride 0.9% 50 Ml Ivpb) 50 ml IV Q24HR@2100 [facility] Stop: 11/28/20 21:01 Last Admin: 11/25/20 21:34 Dose: 50 ml Documented by: Physical Examination Vital Signs Temp Pulse Resp BP Pulse Ox 99 F 74 20 186/94 57 L 11/24/20 22:04 11/24/20 22:04 11/24/20 22:04 11/24/20 22:04 11/24/20 22:04 Narrative exam: Deferred due to isolation protocol. Cardiac: Positive: Reg Rate and Rhythm Results 11/26/20 05:11 11/26/20 05:11 Coagulation 11/25/20 11/26/20 Range/Units 17:54 05:11 PT 13.5 14.4 (12.2-14.9) Sec. INR 1.04 1.13 (0.87-1.13) APTT 30.5 (24.2-36.6) Sec. CBC 11/26/20 Range/Units 05:11 WBC 15.7 H (4.5-11.0) K/mm3 RBC 3.83 (3.65-5.03) M/mm3 Hgb 10.6 (10.1-14.3) gm/dl Hct 32.6 (30.3-42.9) % Plt Count 561 H (140-440) K/mm3 Lymph # (Auto) 1.0 L (1.2-5.4) K/mm3 [place] # (Auto) 0.9 H (0.0-0.8) K/mm3 Eos # (Auto) 0.0 (0.0-0.4) K/mm3 Baso # (Auto) 0.2 H (0.0-0.1) K/mm3 Comprehensive Metabolic Panel 11/26/20 Range/Units 05:11 Sodium 136 L (137-145) mmol/L Potassium 3.9 (3.6-5.0) mmol/L Chloride 99.2 (98-107) mmol/L Carbon Dioxide 25 (22-30) mmol/L BUN 52 H (7-17) mg/dL Creatinine 2.1 H (0.6-1.2) mg/dL Glucose 356 H (65-100) mg/dL Calcium 7.8 L (8.4-10.2) mg/dL Assessment and Plan Mild elevation of troponin likely in the setting of acute renal failure ECG is benign, NSR with LVH COVID-19 viral pneumonia Diabetes, uncontrolled Hypertension Cardiac status is stable. Will follow intermittently.
[2020-11-26] MEDS: INSULIN NPH/REGULAR 70/30 INJ SUB-Q SCH ×2 (10:48→18:16)
--- NOTE | 2020-11-26 11:41 | Progress Note ---
Assessment and Plan Cultures: SARS CoV2 PCR: positive Blood culture: no growth A/P: 60-year-old female with diabetes and hypertension: #Bilateral pneumonia: secondary to COVID-19 #Acute hypoxic respiratory failure: On HFNC #Diabetes mellitus, uncontrolled #EJ Recs: -continue IV/PO Dexamethasone 6 mg daily x 10 days -continue Remdesivir, D2 -Continue empiric antibiotics due to elevated procalcitonin, though it may be from renal insufficiency (complete 5 day course) -prophylactic anticoagulation based on d-dimer per hospital protocol -trend ferritin, LDH, d-dimer, CRP every 2-3 days for risk stratification and to assess disease progression Sekou Person MD, FACP [facility] ([facility] O: [phone] F: [phone] Subjective Date of service: 11/26/20 Interval history: Afebrile. Remains on HFNC. COVID-19 positive. Objective - Exam Narrative Exam: Physical Exam (reviewed in chart to minimize risk of transmission) Constitutional: deferred Head, Ears, Nose: deferred Eyes: deferred Neck: deferred Oral: deferred Cardiovascular: deferred Respiratory: deferred GI: deferred Musculoskeletal: deferred Skin: deferred Hem/Lymphatic: deferred Psych: deferred Neurological: deferred - Constitutional Vitals: Vital Signs Temp Pulse Resp BP Pulse Ox 97.4 F L 63 20 145/78 98 11/26/20 05:41 11/26/20 09:07 11/26/20 05:41 11/26/20 09:07 11/26/20 08:09 Temperature -Last 24 Hours Temperature 97.4 F Temperature 98.2 F Temperature 98.7 F Temperature 98.5 F - Labs CBC & Chem 7: 11/26/20 05:11 11/26/20 05:11 Labs: Abnormal lab results 11/25/20 11/25/20 11/25/20 Range/Units 12:33 16:37 21:54 WBC (4.5-11.0) K/mm3 RDW (13.2-15.2) % Plt Count (140-440) K/mm3 Lymph % (Auto) (13.4-35.0) % Lymph # (Auto) (1.2-5.4) K/mm3 [place] # (Auto) (0.0-0.8) K/mm3 Baso # (Auto) (0.0-0.1) K/mm3 Seg Neutrophils % (40.0-70.0) % Seg Neutrophils # (1.8-7.7) K/mm3 Sodium (137-145) mmol/L BUN (7-17) mg/dL Creatinine (0.6-1.2) mg/dL Glucose (65-100) mg/dL POC Glucose 440 H 358 H 375 H (70-105) mg/dL Calcium (8.4-10.2) mg/dL Coronavirus (PCR) (Negative) 11/25/20 11/26/20 11/26/20 Range/Units Unknown 05:11 05:11 WBC 15.7 H (4.5-11.0) K/mm3 RDW 13.0 L (13.2-15.2) % Plt Count 561 H (140-440) K/mm3 Lymph % (Auto) 6.4 L (13.4-35.0) % Lymph # (Auto) 1.0 L (1.2-5.4) K/mm3 [place] # (Auto) 0.9 H (0.0-0.8) K/mm3 Baso # (Auto) 0.2 H (0.0-0.1) K/mm3 Seg Neutrophils % 87.1 H (40.0-70.0) % Seg Neutrophils # 13.6 H (1.8-7.7) K/mm3 Sodium 136 L (137-145) mmol/L BUN 52 H (7-17) mg/dL Creatinine 2.1 H (0.6-1.2) mg/dL Glucose 356 H (65-100) mg/dL POC Glucose (70-105) mg/dL Calcium 7.8 L (8.4-10.2) mg/dL Coronavirus (PCR) Positive A (Negative) 11/26/20 Range/Units 07:56 WBC (4.5-11.0) K/mm3 RDW (13.2-15.2) % Plt Count (140-440) K/mm3 Lymph % (Auto) (13.4-35.0) % Lymph # (Auto) (1.2-5.4) K/mm3 [place] # (Auto) (0.0-0.8) K/mm3 Baso # (Auto) (0.0-0.1) K/mm3 Seg Neutrophils % (40.0-70.0) % Seg Neutrophils # (1.8-7.7) K/mm3 Sodium (137-145) mmol/L BUN (7-17) mg/dL Creatinine (0.6-1.2) mg/dL Glucose (65-100) mg/dL POC Glucose 353 H (70-105) mg/dL Calcium (8.4-10.2) mg/dL Coronavirus (PCR) (Negative)
--- NOTE | 2020-11-26 12:28 | Progress Note ---
Assessment and Plan Acute hypoxemic respiratory failure secondary to COVID-19 infection Bilateral pneumonia Type 2 DM with hyperglycemia Morbid obesity EJ - continue to wean supplemental oxygen for target O2 sats > 92% -CXR, ABG in am -Discussed awake proning and encouraged her to do it - bronchodilators with pulmonary hygiene per RT - accuchecks with glycemic control per SSI (While critically ill target blood glucose of 140-180 mg/dL; avoid hypoglycemia) - avoid benzodiazepines, reduce the possibility of delirium - completed anti-infectives per ID recs for CAP - prn analgesia per pain score - Maintenance of sleep-wake cycle, avoid delirium - G.I. & VTE prophylaxis( anticoagulated on heparin) -avoid nephrotoxins, adjust all medications for CrCL/GFR - PT/OT/ROM exercises - mobility protocols for pressure ulcer prevention - Monitor hemodynamics closely - continue other care per attending / other consultants COVID SPECIFIC INTERVENTIONS -continue IV/PO Dexamethasone 6 mg daily x 10 days -continue Remdesivir, D2 -Continue empiric antibiotics due to elevated procalcitonin, - Continue to monitor inflammatory markers per facility protocol - ferritin, Ddimer, CRP - anticoagulation per system Protocol based on d-dimer and clinical considerations (on therapeutic heparin) - Continue contact and airborne isolation .... Re-evaluate in am & prn CONDITION: CRITICAL PROGNOSIS: GUARDED CODE STATUS: FULL CODE The high probability of a clinically significant, sudden or life-threatening deterioration of the [respiratory, renal, endocrine] system(s) required my full and direct attention, intervention and personal management. The aggregate critical care time was [33] minutes without overlap. Time includes spent on; [x] Data Review and interpretation [x] Patient assessment and monitoring of vital signs [x] Documentation [x] Medication orders and management Subjective Date of service: 11/26/20 Interval history: Patient is seen today for: Acute hypoxemic respiratory failure; Bilateral pneumonia; COVID-19 infection; Type 2 DM: Obesity Seen and examined at bedside; 24hour events reviewed; nursing and respiratory care staff consulted; no adverse overnight events reported to me; resting peacefully in bed; remains on high flow oxygen therapy 20L and 100%. Denies any fevers or chills, no nausea or vomitng, no diarrhea. [place] any chest pain, has a lingering cough and shortness of breath Objective Vital Signs - 12hr 02/03/1111/26/20 11/26/20 05:41 05:50 08:09 Temperature 97.4 F L Pulse Rate 63 63 Respiratory 20 Rate Blood Pressure 145/78 145/78 O2 Sat by Pulse 98 98 Oximetry 11/26/20 09:07 Temperature Pulse Rate 63 Respiratory Rate Blood Pressure 145/78 O2 Sat by Pulse Oximetry Constitutional: no acute distress Eyes: non-icteric ENT: oropharynx moist, other (large neck) Neck: supple, no lymphadenopathy, no JVD Effort: mildly labored Ascultation: Bilateral: diminished breath sounds Cardiovascular: regular rate and rhythm, other (S1,S2) Gastrointestinal: normoactive bowel sounds, soft, non-tender, non-distended Integumentary: normal Extremities: no cyanosis, no edema Neurologic: normal mental status, non-focal exam, pupils equal and round, motor strength normal and Psychiatric: mood appropriate, affect normal CBC and BMP: 11/27/20 03:30 11/27/20 10:07 ABG, PT/INR, D-dimer: ABG ABG pH 7.403 pH Units (7.350-7.450) 11/24/20 22:30 ABG pCO2 38.7 mm Hg 11/24/20 22:30 ABG pO2 38.2 mm Hg (80.0-90.0) L* 11/24/20 22:30 ABG O2 Saturation 67.0 % (95.0-99.0) L 11/24/20 22:30 PT/INR, D-dimer PT 14.4 Sec. (12.2-14.9) 11/26/20 05:11 INR 1.13 (0.87-1.13) 11/26/20 05:11 D-Dimer 790.01 ng/mlDDU (0-234) H 11/24/20 22:32 Abnormal lab findings: Abnormal Labs 11/24/20 11/24/20 11/24/20 22:30 22:32 22:32 WBC RDW Plt Count Lymph % (Auto) 6.9 L Lymph # (Auto) 0.7 L [place] # (Auto) Baso # (Auto) Seg Neutrophils % 86.5 H Seg Neutrophils # 8.8 H D-Dimer ABG pO2 38.2 L* ABG O2 Saturation 67.0 L ABG Hemoglobin 9.3 L Oxyhemoglobin 65.3 L Sodium 133 L Chloride 94.8 L BUN 42 H Creatinine 2.1 H Glucose 720 H* POC Glucose Hemoglobin A1c Lactic Acid Calcium 7.7 L Ferritin Lactate Dehydrogenase Troponin T 0.076 H C-Reactive Protein Albumin 2.5 L Triglycerides 195 H Coronavirus (PCR) 11/24/20 11/24/20 11/24/20 22:32 22:32 22:32 WBC RDW Plt Count Lymph % (Auto) Lymph # (Auto) [place] # (Auto) Baso # (Auto) Seg Neutrophils % Seg Neutrophils # D-Dimer 790.01 H ABG pO2 ABG O2 Saturation ABG Hemoglobin Oxyhemoglobin Sodium Chloride BUN Creatinine Glucose POC Glucose Hemoglobin A1c Lactic Acid Calcium Ferritin 637.1 H Lactate Dehydrogenase 770 H Troponin T C-Reactive Protein 32.50 H Albumin Triglycerides Coronavirus (PCR) 11/25/20 11/25/20 11/25/20 00:47 00:58 00:58 WBC RDW Plt Count Lymph % (Auto) Lymph # (Auto) [place] # (Auto) Baso # (Auto) Seg Neutrophils % Seg Neutrophils # D-Dimer ABG pO2 ABG O2 Saturation ABG Hemoglobin Oxyhemoglobin Sodium Chloride BUN Creatinine Glucose POC Glucose 522 H Hemoglobin A1c 16.1 H Lactic Acid 2.60 H* Calcium Ferritin Lactate Dehydrogenase Troponin T C-Reactive Protein Albumin Triglycerides Coronavirus (PCR) 11/25/20 11/25/20 11/25/20 07:56 12:33 16:37 WBC RDW Plt Count Lymph % (Auto) Lymph # (Auto) [place] # (Auto) Baso # (Auto) Seg Neutrophils % Seg Neutrophils # D-Dimer ABG pO2 ABG O2 Saturation ABG Hemoglobin Oxyhemoglobin Sodium Chloride BUN Creatinine Glucose POC Glucose 451 H 440 H 358 H Hemoglobin A1c Lactic Acid Calcium Ferritin Lactate Dehydrogenase Troponin T C-Reactive Protein Albumin Triglycerides Coronavirus (PCR) 11/25/20 11/25/20 11/26/20 21:54 Unknown 05:11 WBC 15.7 H RDW 13.0 L Plt Count 561 H Lymph % (Auto) 6.4 L Lymph # (Auto) 1.0 L [place] # (Auto) 0.9 H Baso # (Auto) 0.2 H Seg Neutrophils % 87.1 H Seg Neutrophils # 13.6 H D-Dimer ABG pO2 ABG O2 Saturation ABG Hemoglobin Oxyhemoglobin Sodium Chloride BUN Creatinine Glucose POC Glucose 375 H Hemoglobin A1c Lactic Acid Calcium Ferritin Lactate Dehydrogenase Troponin T C-Reactive Protein Albumin Triglycerides Coronavirus (PCR) Positive A 11/26/20 11/26/20 11/26/20 05:11 07:56 11:38 WBC RDW Plt Count Lymph % (Auto) Lymph # (Auto) [place] # (Auto) Baso # (Auto) Seg Neutrophils % Seg Neutrophils # D-Dimer ABG pO2 ABG O2 Saturation ABG Hemoglobin Oxyhemoglobin Sodium 136 L Chloride BUN 52 H Creatinine 2.1 H Glucose 356 H POC Glucose 353 H 324 H Hemoglobin A1c Lactic Acid Calcium 7.8 L Ferritin Lactate Dehydrogenase Troponin T C-Reactive Protein Albumin Triglycerides Coronavirus (PCR) Chest x-ray: image reviewed (Bilateral alveolar infiltrates) Allied health notes reviewed: RT
[2020-11-26] MEDS: NIFEdipine XL 60 MG TAB PO SCH (14:30)
--- NOTE | 2020-11-26 14:55 | Progress Note ---
Assessment and Plan - Patient Problems (1) Acute renal failure Current Visit: Yes Status: Acute Plan to address problem: Acute kidney injury likely secondary to pre-renal azotemia in the setting of severe hyperglycemia, pneumonia. UA showed significant proteinuria > 500, suspect underlying diabetic nephropathy. Check Urine lytes, urin protein/Cr rati o. Check renal US to rule out obstructive nephropathy. cont IV NS at 75m/hr, cont supportive care for EJ, avoid nephrotoxins, NSAIDs, IV contrast. Will monitor lytes/renal parameters and make further recommendations. (2) Acute respiratory failure with hypoxia Current Visit: Yes Status: Acute Plan to address problem: O2 sat improved on high flow O2 now > 95%. follow pulmonary recommendations (3) Suspected 2019 novel coronavirus infection Current Visit: Yes Status: Acute Plan to address problem: Patient placed on isolation precautions. pending COVID-19 testing. patient initiated on dexamethasone IV along with remdesivir. Follow ID recommendations (4) Hypertensive urgency Current Visit: Yes Status: Acute Plan to address problem: BP improved to target on IV hydralazine prn. will add amlodipine 10mg po qd starting in AM (5) Hyperglycemia Current Visit: Yes Status: Acute Plan to address problem: glucose control as per primary attending (6) Hyponatremia Current Visit: Yes Status: Acute Plan to address problem: secondary to hyperglycemia, expect Na to correct with improved glucose control Subjective Date of service: 11/26/20 Principal diagnosis: EJ Interval history: In an effort to conserve Personal protective equipment and limit exposure, the patient was not directly examined by me. Interdisciplinary team notes, previous examinations, labs and diagnostics have been extensively reviewed and all recommendations taken into consideration. Physical exam deferred to primary team Objective - Exam Narrative Exam: Exam deferred d/t PPE preservation. - Vital Signs Vital signs: Vital Signs - 12hr 11/26/20 11/26/20 11/26/20 05:41 05:50 08:09 Temperature 97.4 F L Pulse Rate 63 63 Respiratory 20 Rate Blood Pressure 145/78 145/78 O2 Sat by Pulse 98 98 Oximetry 11/26/20 11/26/20 11/26/20 09:07 11:40 14:00 Temperature 98.8 F Pulse Rate 63 64 Respiratory 18 Rate Blood Pressure 145/78 129/55 O2 Sat by Pulse 100 100 Oximetry 11/26/20 14:30 Temperature Pulse Rate 64 Respiratory Rate Blood Pressure 129/55 O2 Sat by Pulse Oximetry - Lab 11/26/20 05:11 11/26/20 05:11 Most recent lab results ABG pH 7.403 pH Units (7.350-7.450) 11/24/20 22:30 ABG pCO2 38.7 mm Hg 11/24/20 22:30 ABG pO2 38.2 mm Hg (80.0-90.0) L* 11/24/20 22:30 ABG HCO3 23.6 mmol/L (20.0-26.0) 11/24/20 22:30 ABG O2 Saturation 67.0 % (95.0-99.0) L 11/24/20 22:30 Calcium 7.8 mg/dL (8.4-10.2) L 11/26/20 05:11 Medications & Allergies - Medications Allergies/Adverse Reactions: Allergies No Known Allergies Allergy (Verified 11/25/20 00:33) Home Medications: Home Medications Medication Instructions Recorded Confirmed Last Taken Type Metformin HCl [metFORMIN] 1,000 mg PO BID 11/25/20 11/25/20 Unknown History amLODIPine [Norvasc] 5 mg PO DAILY 11/25/20 11/25/20 Unknown History glipiZIDE [Glucotrol] 20 mg PO BID 11/25/20 11/25/20 Unknown History hydroCHLOROthiazide 12.5 mg PO BID 11/25/20 11/25/20 Unknown History [Hydrochlorothiazide] lisinopriL [Zestril] 20 mg PO BID 11/25/20 11/25/20 Unknown History Active Medications: Generic Name Dose Route Start Last Admin Trade Name Altonq PRN Reason Stop Dose Admin Acetaminophen 650 mg 11/25/20 00:25 Acetaminophen 325 Mg Tab PO Q4H PRN Pain MILD(1-3)/Fever >100.5/YING Azithromycin 500 mg 11/25/20 22:00 11/25/20 21:35 Azithromycin 250 Mg Tab PO 11/28/20 22:01 500 mg QHS TANYA Administration Dexamethasone 6 mg 11/25/20 10:00 11/26/20 09:06 Dexamethasone 4 Mg/Ml Vial IV 12/03/20 10:01 6 mg Q24HR TANYA Administration Dextrose 50 ml 11/25/20 00:25 Dextrose 50% In Water (25gm) 50 Ml Syringe IV Q30MIN PRN Hypoglycemia Protocol Famotidine 20 mg 11/25/20 22:00 11/26/20 09:06 Famotidine 20 Mg Tab PO 20 mg DAILY TANYA Administration Heparin Sodium (Porcine) 3,400 unit 11/25/20 16:24 11/25/20 17:10 Heparin 10,000 Units/10 Ml Vial 40 unit/kg (3400 unit) 3,400 unit IV Administration Q6H PRN Anti-Xa Assay < 0.1 units/ml Hydralazine HCl 25 mg 11/25/20 17:00 11/26/20 14:30 Hydralazine 25 Mg Tab PO 25 mg Q8HR TANYA Administration Hydrochlorothiazide 12.5 mg 11/25/20 14:00 11/26/20 09:06 Hydrochlorothiazide 12.5 Mg Cap PO 12.5 mg BID TANYA Administration Ceftriaxone Sodium 2 gm in 100 mls @ 200 mls/hr 11/25/20 22:00 11/25/20 21:33 Rocephin/Ns 2 Gm/100 Ml IV 11/29/20 22:29 200 mls/hr Q24H TANYA Administration Protocol Sodium Chloride 1,000 mls @ 75 mls/hr 11/25/20 06:30 Nacl 0.9% 1000 Ml IV DIRECT TANYA REMDESIVIR 100 mg/ Sodium 250 mls @ 500 mls/hr 11/26/20 21:00 Chloride IV 11/29/20 21:29 Q24HR@2100 TANYA Heparin Sodium/Sodium Chloride 25,000 unit in 500 mls @ 26 mls/hr 11/25/20 17:00 11/26/20 07:18 Heparin/ 0.45% Nacl-25,000 Unit/500 Ml IV 1,300 units/hr TITR TANYA 26 mls/hr Titration Protocol 1,300 UNITS/HR Insulin Human Isoph/Insulin Regular 20 unit 11/26/20 10:00 11/26/20 10:48 Insulin Nph/Regular 70/30 Inj SUB-Q 20 unit BIDDIAB TANYA Administration Insulin Human Lispro 0 unit 11/25/20 07:30 11/26/20 12:46 Insulin Lispro 100 Unit/Ml SUB-Q 8 unit ACHS TANYA Administration Protocol Magnesium Hydroxide 30 ml 11/25/20 00:25 Magnesium Hydroxide (Mom) Oral Liqd Udc PO Q4H PRN Constipation Morphine Sulfate 2 mg 11/25/20 00:25 Morphine 2 Mg/1 Ml Inj IV Q4H PRN Pain, Moderate (4-6) Nifedipine 60 mg 11/26/20 14:00 11/26/20 14:30 Nifedipine Xl 60 Mg Tab PO 60 mg QDAY TANYA Administration Ondansetron HCl 4 mg 11/25/20 00:25 Ondansetron 4 Mg/2 Ml Inj IV Q8H PRN Nausea And Vomiting Sodium Chloride 10 ml 11/25/20 10:00 11/26/20 09:08 Sodium Chloride 0.9% 10 Ml Flush Syringe IV 10 ml BID TANYA Administration Sodium Chloride 10 ml 11/25/20 00:25 Sodium Chloride 0.9% 10 Ml Flush Syringe IV PRN PRN LINE FLUSH Sodium Chloride 50 ml 11/25/20 16:00 11/25/20 21:34 Sodium Chloride 0.9% 50 Ml Ivpb IV 11/28/20 21:01 50 ml Q24HR@2100 TANYA Administration Valsartan 80 mg 11/26/20 14:00 Valsartan 40 Mg Tab PO BID TANYA
[2020-11-26] MEDS: VALSARTAN 40 MG TAB PO SCH ×2 (17:40→21:22)
[2020-11-26] MEDS: cefTRIAXone/NS 2 GM/100 ML 2 GM/100 ML BAG IV SCH (21:21)
[2020-11-26] MEDS: AZITHROMYCIN 250 MG TAB PO SCH (21:23)
[2020-11-26] MEDS: REMDESIVIR 100 MG in SODIUM CHLORIDE 0.9% 250ML 250 ML IV SCH (22:35)
[2020-11-26] MEDS: SODIUM CHLORIDE 0.9% 50 ML IVPB IV SCH (23:10)
[2020-11-27 04:13] LABS: Hematocrit 36.5 % (30.3-42.9); Hemoglobin 11.6 gm/dl (10.1-14.3)
[2020-11-27 04:14] LABS: Alanine Aminotransferase 16 units/L (7-56); Albumin 2.3 g/dL (3.9-5); BUN/Creatinine Ratio 26; Blood Urea Nitrogen 64 mg/dL (7-17); Calcium 8.1 mg/dL (8.4-10.2); Hemolysis Index 15
[2020-11-27] MEDS: hydrALAZINE 25 MG TAB PO SCH ×3 (05:45→23:33)
[2020-11-27] MEDS: INSULIN LISPRO 100 UNIT/ML SUB-Q SCH ×4 (08:28→23:40)
[2020-11-27] MEDS: INSULIN NPH/REGULAR 70/30 INJ SUB-Q SCH ×2 (08:40→17:21)
--- NOTE | 2020-11-27 09:34 | Progress Note ---
Assessment and Plan Assessment and plan: The patient is a 60-year-old female with diabetes and hypertension admitted to the hospital with weakness going on for about 6 days prior to admission. Upon evaluation in the ER, she was noted to be hypoxic on room air requiring supplemental oxygen. Chest x-ray showed bilateral pneumonia. Due to concerns for COVID-19, infectious diseases was consulted. Patient has severe hyperglycemia. D-dimer 790, procalcitonin 0.81, creatinine 2.1, CRP 32.5, ferritin 637, LDH 770. Patient is on high flow nasal cannula. Acute hypoxic respiratory failure COVID-19 bilateral pneumonia Covid coagulopathy. Sepsis Diabetes mellitus type 2 Acute kidney injury 11/26/2020. Continue IV dexamethasone 6 mg daily for total of 10 days. Continue remdesivir. Continue empiric antibiotics due to elevated procalcitonin. Continue prophylactic anticoagulation based on D-dimer per protocol. Trend inflammatory markers of ferritin, LDH, D-dimer and CRP. Continue O2 to maintain sats greater than 92%, wean as tolerated 11/27/2020. Remdesivir scheduled to complete on 11/29/2020 and dexamethasone on 12/03/2020. Continue empiric antibiotics of Rocephin and azithromycin for elevated procalcitonin. Continue heparin drip per pulmonary recommendations. Recheck inflammatory markers/D-dimer. Patient with significant hypoxia currently on HFNC 20 L History Interval history: The patient is a 60-year-old female with diabetes and hypertension admitted to the hospital with weakness going on for about 6 days prior to admission. Upon evaluation in the ER, she was noted to be hypoxic on room air requiring supplemental oxygen. Chest x-ray showed bilateral pneumonia. Due to concerns for COVID-19, infectious diseases was consulted. Patient has severe h yperglycemia. D-dimer 790, procalcitonin 0.81, creatinine 2.1, CRP 32.5, ferritin 637, LDH 770. Patient is on high flow nasal cannula. No new issues overnight Hospitalist Physical - Constitutional Vitals: Temp Pulse Resp BP Pulse Ox 97.4 F L 65 16 103/57 96 11/27/20 04:20 11/27/20 05:45 11/27/20 04:20 11/27/20 05:45 11/27/20 04:20 General appearance: Present: mild distress, well-nourished - EENT Eyes: Present: PERRL, EOM intact ENT: hearing intact, clear oral mucosa, dentition normal - Neck Neck: Present: supple, normal ROM - Respiratory Respiratory effort: normal Respiratory: bilateral: CTA - Cardiovascular Rhythm: regular Heart Sounds: Present: S1 & S2. Absent: gallop, rub - Extremities Extremities: no ischemia, No edema, Full ROM - Abdominal General gastrointestinal: soft, non-tender, non-distended, normal bowel sounds - Integumentary Integumentary: Present: clear, warm, dry - Neurologic Neurologic: CNII-XII intact, moves all extremities HEART Score - HEART Score Troponin: Troponin T 0.025 ng/mL (0.00-0.029) 11/25/20 17:54 Results - Labs CBC & Chem 7: 11/27/20 03:30 11/27/20 03:30 Labs: Laboratory Last Values WBC 15.7 K/mm3 (4.5-11.0) H 11/26/20 05:11 RBC 3.83 M/mm3 (3.65-5.03) 11/26/20 05:11 Hgb 11.6 gm/dl (10.1-14.3) 11/27/20 03:30 Hct 36.5 % (30.3-42.9) 11/27/20 03:30 MCV 85 fl (79-97) 11/26/20 05:11 MCH 28 pg (28-32) 11/26/20 05:11 MCHC 33 % (30-34) 11/26/20 05:11 RDW 13.0 % (13.2-15.2) L 11/26/20 05:11 Plt Count 732 K/mm3 (140-440) H 11/27/20 03:30 Lymph % (Auto) 6.4 % (13.4-35.0) L 11/26/20 05:11 [place] % (Auto) 5.4 % (0.0-7.3) 11/26/20 05:11 Eos % (Auto) 0.0 % (0.0-4.3) 11/26/20 05:11 Baso % (Auto) 1.1 % (0.0-1.8) 11/26/20 05:11 Lymph # (Auto) 1.0 K/mm3 (1.2-5.4) L 11/26/20 05:11 [place] # (Auto) 0.9 K/mm3 (0.0-0.8) H 11/26/20 05:11 Eos # (Auto) 0.0 K/mm3 (0.0-0.4) 11/26/20 05:11 Baso # (Auto) 0.2 K/mm3 (0.0-0.1) H 11/26/20 05:11 Seg Neutrophils % 87.1 % (40.0-70.0) H 11/26/20 05:11 Seg Neutrophils # 13.6 K/mm3 (1.8-7.7) H 11/26/20 05:11 PT 14.4 Sec. (12.2-14.9) 11/26/20 05:11 INR 1.13 (0.87-1.13) 11/26/20 05:11 APTT 30.5 Sec. (24.2-36.6) 11/25/20 17:54 D-Dimer 790.01 ng/mlDDU (0-234) H 11/24/20 22:32 Heparin Anti-Xa Level 0.50 U.I./ml (0.3-0.7) 11/27/20 03:30 ABG pH 7.403 pH Units (7.350-7.450) 11/24/20 22:30 ABG pCO2 38.7 mm Hg 11/24/20 22:30 ABG pO2 38.2 mm Hg (80.0-90.0) L* 11/24/20 22:30 ABG HCO3 23.6 mmol/L (20.0-26.0) 11/24/20 22:30 ABG O2 Saturation 67.0 % (95.0-99.0) L 11/24/20 22:30 ABG O2 Content 8.6 (0.0-44) 11/24/20 22:30 ABG Base Excess -1.0 mmol/L (-2.0-3.0) 11/24/20 22:30 ABG Hemoglobin 9.3 gm/dl (12.0-16.0) L 11/24/20 22:30 ABG Carboxyhemoglobin 1.6 % (0.0-5.0) 11/24/20 22:30 ABG Methemoglobin 0.8 % (0.0-1.5) 11/24/20 22:30 Oxyhemoglobin 65.3 % (95.0-99.0) L 11/24/20 22:30 FiO2 21 % 11/24/20 22:30 Sodium 138 mmol/L (137-145) 11/27/20 03:30 Potassium 3.9 mmol/L (3.6-5.0) 11/27/20 03:30 Chloride 99.5 mmol/L (98-107) 11/27/20 03:30 Carbon Dioxide 23 mmol/L (22-30) 11/27/20 03:30 Anion Gap 19 mmol/L 11/27/20 03:30 BUN 64 mg/dL (7-17) H 11/27/20 03:30 Creatinine 2.5 mg/dL (0.6-1.2) H 11/27/20 03:30 Estimated GFR 24 ml/min 11/27/20 03:30 BUN/Creatinine Ratio 26 % 11/27/20 03:30 Glucose 149 mg/dL (65-100) H 11/27/20 03:30 POC Glucose 134 mg/dL (70-105) H 11/27/20 07:58 Hemoglobin A1c 16.1 % (4-6) H 11/25/20 00:58 Ketones Quantitative Negative (Negative) 11/24/20 22:32 Lactic Acid 1.20 mmol/L (0.7-2.0) 11/25/20 05:07 Calcium 8.1 mg/dL (8.4-10.2) L 11/27/20 03:30 Ferritin 637.1 ng/mL (10.0-200.0) H 11/24/20 22:32 Total Bilirubin < 0.20 mg/dL (0.1-1.2) 11/27/20 03:30 AST 19 units/L (5-40) 11/27/20 03:30 ALT 16 units/L (7-56) 11/27/20 03:30 Alkaline Phosphatase 82 units/L (35-129) 11/27/20 03:30 Lactate Dehydrogenase 770 units/L (91-180) H 11/24/20 22:32 Troponin T 0.025 ng/mL (0.00-0.029) 11/25/20 17:54 C-Reactive Protein 32.50 mg/dL (0.00-1.30) H 11/24/20 22:32 Total Protein 5.4 g/dL (6.3-8.2) L D 11/27/20 03:30 Albumin 2.3 g/dL (3.9-5) L 11/27/20 03:30 Albumin/Globulin Ratio 0.7 % 11/27/20 03:30 Triglycerides 195 mg/dL (2-149) H 11/24/20 22:32 Cholesterol 175 mg/dL (50-199) 11/24/20 22:32 LDL Cholesterol Direct 96 mg/dL (50-130) 11/24/20 22:32 HDL Cholesterol 45 mg/dL (40-59) 11/24/20 22:32 Cholesterol/HDL Ratio 3.88 % 11/24/20 22:32 Procalcitonin 0.81 ng/mL (<0.15) 11/24/20 22:32 Urine Color Yellow (Yellow) 11/24/20 Unknown Urine Turbidity Slightly-cloudy (Clear) 11/24/20 Unknown Urine pH 6.0 (5.0-7.0) 11/24/20 Unknown Ur Specific [place] 1.022 (1.003-1.030) 11/24/20 Unknown Urine Protein >500 mg/dL (Negative) 11/24/20 Unknown Urine Glucose (UA) >=500 mg/dL (Negative) 11/24/20 Unknown Urine Ketones Tr mg/dL (Negative) 11/24/20 Unknown Urine Blood Neg (Negative) 11/24/20 Unknown Urine Nitrite Neg (Negative) 11/24/20 Unknown Urine Bilirubin Neg (Negative) 11/24/20 Unknown Urine Urobilinogen < 2.0 mg/dL (<2.0) 11/24/20 Unknown Ur Leukocyte Esterase Neg (Negative) 11/24/20 Unknown Urine WBC (Auto) 1.0 /HPF (0.0-6.0) 11/24/20 Unknown Urine RBC (Auto) 1.0 /HPF (0.0-6.0) 11/24/20 Unknown U Epithel Cells (Auto) 2.0 /HPF (0-13.0) 11/24/20 Unknown Urine Mucus Few /HPF 11/24/20 Unknown Coronavirus (PCR) Positive (Negative) A 11/25/20 Unknown Microbiology: Microbiology 11/24/20 22:32 Peripheral/Venous Blood Culture - Preliminary NO GROWTH AFTER 48 HOURS 11/24/20 23:20 Peripheral/Venous Blood Culture - Preliminary NO GROWTH AFTER 48 HOURS Kapoor/IV: Voiding Method Bedside Commode IV Catheter Type [Left Forearm INT / Saline Lock ] Active Medications - Current Medications Current Medications: Generic Name Dose Route Start Last Admin Trade Name Freq PRN Reason Stop Dose Admin Acetaminophen 650 mg 11/25/20 00:25 Acetaminophen 325 Mg Tab PO Q4H PRN Pain MILD(1-3)/Fever >100.5/YING Azithromycin 500 mg 11/25/20 22:00 11/26/20 21:23 Azithromycin 250 Mg Tab PO 11/28/20 22:01 500 mg QHS TANYA Administration Dexamethasone 6 mg 11/25/20 10:00 11/26/20 09:06 Dexamethasone 4 Mg/Ml Vial IV 12/03/20 10:01 6 mg Q24HR TANYA Administration Dextrose 50 ml 11/25/20 00:25 Dextrose 50% In Water (25gm) 50 Ml Syringe IV Q30MIN PRN Hypoglycemia Protocol Famotidine 20 mg 11/25/20 22:00 11/26/20 09:06 Famotidine 20 Mg Tab PO 20 mg DAILY TANYA Administration Heparin Sodium (Porcine) 3,400 unit 11/25/20 16:24 11/25/20 17:10 Heparin 10,000 Units/10 Ml Vial 40 unit/kg (3400 unit) 3,400 unit IV Administration Q6H PRN Anti-Xa Assay < 0.1 units/ml Hydralazine HCl 25 mg 11/25/20 17:00 11/27/20 05:45 Hydralazine 25 Mg Tab PO Not Given Q8HR TANYA Hydrochlorothiazide 12.5 mg 11/25/20 14:00 11/26/20 21:22 Hydrochlorothiazide 12.5 Mg Cap PO 12.5 mg BID TANYA Administration Ceftriaxone Sodium 2 gm in 100 mls @ 200 mls/hr 11/25/20 22:00 11/26/20 21:21 Rocephin/Ns 2 Gm/100 Ml IV 11/29/20 22:29 200 mls/hr Q24H TANYA Administration Protocol Sodium Chloride 1,000 mls @ 75 mls/hr 11/25/20 06:30 Nacl 0.9% 1000 Ml IV DIRECT TANYA REMDESIVIR 100 mg/ Sodium 250 mls @ 500 mls/hr 11/26/20 21:00 11/26/20 22:35 Chloride IV 11/29/20 21:29 500 mls/hr Q24HR@2100 TANYA Administration Heparin Sodium/Sodium Chloride 25,000 unit in 500 mls @ 26 mls/hr 11/25/20 17:00 11/27/20 04:32 Heparin/ 0.45% Nacl-25,000 Unit/500 Ml IV Infused TITR TANYA Titration Protocol 1,300 UNITS/HR Insulin Human Isoph/Insulin Regular 20 unit 11/26/20 10:00 11/27/20 08:40 Insulin Nph/Regular 70/30 Inj SUB-Q 20 unit BIDDIAB [facility] Administration Insulin Human Lispro 0 unit 11/25/20 07:30 11/27/20 08:28 Insulin Lispro 100 Unit/Ml SUB-Q Not Given ACHS [facility] Protocol Magnesium Hydroxide 30 ml 11/25/20 00:25 Magnesium Hydroxide (Mom) Oral Liqd Udc PO Q4H PRN Constipation Morphine Sulfate 2 mg 11/25/20 00:25 Morphine 2 Mg/1 Ml Inj IV Q4H PRN Pain, Moderate (4-6) Nifedipine 60 mg 11/26/20 14:00 11/26/20 14:30 Nifedipine Xl 60 Mg Tab PO 60 mg QDAY [facility] Administration Ondansetron HCl 4 mg 11/25/20 00:25 Ondansetron 4 Mg/2 Ml Inj IV Q8H PRN Nausea And Vomiting Sodium Chloride 10 ml 11/25/20 10:00 11/26/20 21:23 Sodium Chloride 0.9% 10 Ml Flush Syringe IV 10 ml BID TANYA Administration Sodium Chloride 10 ml 11/25/20 00:25 Sodium Chloride 0.9% 10 Ml Flush Syringe IV PRN PRN LINE FLUSH Sodium Chloride 50 ml 11/25/20 16:00 11/26/20 23:10 Sodium Chloride 0.9% 50 Ml Ivpb IV 11/28/20 21:01 50 ml Q24HR@2100 [facility] Administration Valsartan 80 mg 11/26/20 14:00 11/26/20 21:22 Valsartan 40 Mg Tab PO 80 mg BID TANYA Administration Nutrition/Malnutrition Assess - Dietary Evaluation Nutrition/Malnutrition Findings: Nutrition Notes Start: 11/25/20 12:52 Freq: Status: Active Protocol: Document 11/25/20 12:53 EN (Rec: 11/25/20 12:59 [id number]) Co-Sign 11/25/20 12:53 MK Nutrition Notes Need for Assessment generated from: MD Order,Education Initial or Follow up Assessment Current Diagnosis Acute Kidney Injury,Diabetes, Hypertension Other Pertinent Diagnosis Suspected COVID-19, Pneu, ARF Current Diet Consistent CHO Labs/Tests POC BG 451 Hgb A1c 16.1 Pertinent Medications Decadron Humalog Humulin Height 5 ft 2 in Weight 86.183 kg [place] Body Weight (kg) 50.00 BMI 34.7 Weight Status Obese Subjective/Other Information MD order for diet education. Unable to reach pt by phone x2 . Per RN, pt consuming 100% of meals with a good appetite. RN denies N/V/D. Percent of energy/protein needs met: 100%/100% Burn Absent Trauma Absent GI Symptoms None Food Allergy No Current % PO Good (75-100%) Minimum of two criteria No physical signs of malnutrition #1 Nutrition Diagnosis No nutrition diagnosis at this time Is patient on ventilator? No Is Patient Ambulatory and/or Out of Bed Yes REE-([facility]-ambulatory/OOB) [ 1787.604 [id number]] Kcal/Kg value to use for calculation 18 Approximate Energy Requirements Using 1551 kcal/Kg Calculation Used for Recommendations Kcal/kg Additional Notes Protien: 0.8-1.2g/kg AdBW 68kg (54-82g) Fluid: 500mL + output Nutrition Intervention Change Diet Order: Continue current diet Goal #1 Meet at least 80% of energy and protein needs via PO Goal #2 Consistent CHO diet understanding Anticipated Discharge Needs: Consistent CHO Follow-Up By: 11/30/20 Additional Comments F/u for diet education and assessment
[2020-11-27] MEDS: dexAMETHasone 4 MG/ML VIAL IV SCH (10:38)
[2020-11-27] MEDS: hydroCHLOROthiazide 12.5 MG CAP PO SCH ×2 (10:38→23:32)
[2020-11-27] MEDS: FAMOTIDINE 20 MG TAB PO SCH (10:38)
[2020-11-27 10:46] LABS: C-Reactive Protein 6.7 mg/dL (0.00-1.30)
[2020-11-27] MEDS: NIFEdipine XL 60 MG TAB PO SCH (10:48)
[2020-11-27] MEDS: VALSARTAN 40 MG TAB PO SCH ×3 (10:49→23:37)
--- NOTE | 2020-11-27 11:07 | Progress Note ---
Assessment and Plan Acute hypoxemic respiratory failure secondary to COVID-19 infection Bilateral pneumonia Type 2 DM with hyperglycemia Morbid obesity EJ - continue to wean supplemental oxygen for target O2 sats > 92% -CXR, ABG today -Continue awake proning as tolerated - bronchodilators with pulmonary hygiene per RT - accuchecks with glycemic control per SSI (While critically ill target blood glucose of 140-180 mg/dL; avoid hypoglycemia) - avoid benzodiazepines, reduce the possibility of delirium - completed anti-infectives per ID recs for CAP - prn analgesia per pain score - continue to maintain of sleep-wake cycle, avoid delirium - G.I. & VTE prophylaxis( anticoagulated on heparin, will switch to prophylaxis dosing) -continue avoid nephrotoxins, adjust all medications for CrCL/GFR - PT/OT/ROM exercises - mobility protocols for pressure ulcer prevention - Monitor hemodynamics closely - continue other care per attending / other consultants COVID SPECIFIC INTERVENTIONS -continue IV/PO Dexamethasone 6 mg daily x 10 days -continue Remdesivir, D3 -Continue empiric antibiotics due to elevated procalcitonin, - Continue to monitor inflammatory markers per facility protocol - ferritin, D dimer, CRP - continue anticoagulation per system Protocol based on d-dimer and clinical considerations (on therapeutic heparin) - Continue contact and airborne isolation .... Re-evaluate in am & prn CONDITION: CRITICAL PROGNOSIS: GUARDED CODE STATUS: FULL CODE The high probability of a clinically significant, sudden or life-threatening deterioration of the [respiratory, renal, endocrine] system(s) required my full and direct attention, intervention and personal management. The aggregate crit ical care time was [33] minutes without overlap. Time includes spent on; [x] Data Review and interpretation [x] Patient assessment and monitoring of vital signs [x] Documentation [x] Medication orders and management Subjective Date of service: 11/27/20 Principal diagnosis: EJ Interval history: Patient is seen today for: Acute hypoxemic respiratory failure; Bilateral pneumonia; COVID-19 infection; Type 2 DM: Obesity Seen and examined at bedside; 24hour events reviewed; nursing and respiratory care staff consulted; no adverse overnight events reported to me; resting peacefully in bed; remains on high flow oxygen therapy 20L and 100%. Denies any fevers or chills, no nausea or vomitng, no diarrhea. Denies any chest pain, has a lingering cough , improving shortness of breath States she did sleep prone last night Objective Vital Signs - 12hr 11/27/20 11/27/20 11/27/20 04:20 05:45 10:14 Temperature 97.4 F L Pulse Rate 65 65 Respiratory 16 Rate Blood Pressure 103/57 103/57 O2 Sat by Pulse 96 99 Oximetry 11/27/20 10:52 Temperature Pulse Rate 64 Respiratory Rate Blood Pressure 112/55 O2 Sat by Pulse Oximetry Constitutional: no acute distress Eyes: non-icteric ENT: oropharynx moist, other (large neck) Neck: supple, no lymphadenopathy, no JVD Effort: mildly labored Ascultation: Bilateral: diminished breath sounds Cardiovascular: regular rate and rhythm, other (S1,S2) Gastrointestinal: normoactive bowel sounds, soft, non-tender, non-distended Integumentary: normal Extremities: no cyanosis, no edema Neurologic: normal mental status, non-focal exam, pupils equal and round, motor strength normal and Psychiatric: mood appropriate, affect normal CBC and BMP: 11/27/20 03:30 11/27/20 10:07 ABG, PT/INR, D-dimer: ABG ABG pH 7.403 pH Units (7.350-7.450) 11/24/20 22:30 ABG pCO2 38.7 mm Hg 11/24/20 22:30 ABG pO2 38.2 mm Hg (80.0-90.0) L* 11/24/20 22:30 ABG O2 Saturation 67.0 % (95.0-99.0) L 11/24/20 22:30 PT/INR, D-dimer PT 14.4 Sec. (12.2-14.9) 11/26/20 05:11 INR 1.13 (0.87-1.13) 11/26/20 05:11 D-Dimer 429.38 ng/mlDDU (0-234) H 11/27/20 10:07 Abnormal lab findings: Abnormal Labs 11/24/20 11/24/20 11/24/20 22:30 22:32 22:32 WBC RDW Plt Count Lymph % (Auto) 6.9 L Lymph # (Auto) 0.7 L [place] # (Auto) Baso # (Auto) Seg Neutrophils % 86.5 H Seg Neutrophils # 8.8 H D-Dimer ABG pO2 38.2 L* ABG O2 Saturation 67.0 L ABG Hemoglobin 9.3 L Oxyhemoglobin 65.3 L Sodium 133 L Chloride 94.8 L BUN 42 H Creatinine 2.1 H Glucose 720 H* POC Glucose Hemoglobin A1c Lactic Acid Calcium 7.7 L Ferritin Lactate Dehydrogenase Troponin T 0.076 H C-Reactive Protein Total Protein Albumin 2.5 L Triglycerides 195 H Coronavirus (PCR) 11/24/20 11/24/20 11/24/20 22:32 22:32 22:32 WBC RDW Plt Count Lymph % (Auto) Lymph # (Auto) [place] # (Auto) Baso # (Auto) Seg Neutrophils % Seg Neutrophils # D-Dimer 790.01 H ABG pO2 ABG O2 Saturation ABG Hemoglobin Oxyhemoglobin Sodium Chloride BUN Creatinine Glucose POC Glucose Hemoglobin A1c Lactic Acid Calcium Ferritin 637.1 H Lactate Dehydrogenase 770 H Troponin T C-Reactive Protein 32.50 H Total Protein Albumin Triglycerides Coronavirus (PCR) 11/25/20 11/25/20 11/25/20 00:47 00:58 00:58 WBC RDW Plt Count Lymph % (Auto) Lymph # (Auto) [place] # (Auto) Baso # (Auto) Seg Neutrophils % Seg Neutrophils # D-Dimer ABG pO2 ABG O2 Saturation ABG Hemoglobin Oxyhemoglobin Sodium Chloride BUN Creatinine Glucose POC Glucose 522 H Hemoglobin A1c 16.1 H Lactic Acid 2.60 H* Calcium Ferritin Lactate Dehydrogenase Troponin T C-Reactive Protein Total Protein Albumin Triglycerides Coronavirus (PCR) 11/25/20 11/25/20 11/25/20 07:56 12:33 16:37 WBC RDW Plt Count Lymph % (Auto) Lymph # (Auto) [place] # (Auto) Baso # (Auto) Seg Neutrophils % Seg Neutrophils # D-Dimer ABG pO2 ABG O2 Saturation ABG Hemoglobin Oxyhemoglobin Sodium Chloride BUN Creatinine Glucose POC Glucose 451 H 440 H 358 H Hemoglobin A1c Lactic Acid Calcium Ferritin Lactate Dehydrogenase Troponin T C-Reactive Protein Total Protein Albumin Triglycerides Coronavirus (PCR) 11/25/20 11/25/20 11/26/20 21:54 Unknown 05:11 WBC 15.7 H RDW 13.0 L Plt Count 561 H Lymph % (Auto) 6.4 L Lymph # (Auto) 1.0 L [place] # (Auto) 0.9 H Baso # (Auto) 0.2 H Seg Neutrophils % 87.1 H Seg Neutrophils # 13.6 H D-Dimer ABG pO2 ABG O2 Saturation ABG Hemoglobin Oxyhemoglobin Sodium Chloride BUN Creatinine Glucose POC Glucose 375 H Hemoglobin A1c Lactic Acid Calcium Ferritin Lactate Dehydrogenase Troponin T C-Reactive Protein Total Protein Albumin Triglycerides Coronavirus (PCR) Positive A 11/26/20 11/26/20 11/26/20 05:11 07:56 11:38 WBC RDW Plt Count Lymph % (Auto) Lymph # (Auto) [place] # (Auto) Baso # (Auto) Seg Neutrophils % Seg Neutrophils # D-Dimer ABG pO2 ABG O2 Saturation ABG Hemoglobin Oxyhemoglobin Sodium 136 L Chloride BUN 52 H Creatinine 2.1 H Glucose 356 H POC Glucose 353 H 324 H Hemoglobin A1c Lactic Acid Calcium 7.8 L Ferritin Lactate Dehydrogenase Troponin T C-Reactive Protein Total Protein Albumin Triglycerides Coronavirus (PCR) 11/26/20 11/26/20 11/27/20 16:54 20:59 03:30 WBC RDW Plt Count Lymph % (Auto) Lymph # (Auto) [place] # (Auto) Baso # (Auto) Seg Neutrophils % Seg Neutrophils # D-Dimer ABG pO2 ABG O2 Saturation ABG Hemoglobin Oxyhemoglobin Sodium Chloride BUN 64 H Creatinine 2.5 H Glucose 149 H POC Glucose 221 H 199 H Hemoglobin A1c Lactic Acid Calcium 8.1 L Ferritin Lactate Dehydrogenase Troponin T C-Reactive Protein Total Protein 5.4 L D Albumin 2.3 L Triglycerides Coronavirus (PCR) 11/27/20 11/27/20 11/27/20 03:30 07:58 10:07 WBC RDW Plt Count 732 H Lymph % (Auto) Lymph # (Auto) [place] # (Auto) Baso # (Auto) Seg Neutrophils % Seg Neutrophils # D-Dimer 429.38 H ABG pO2 ABG O2 Saturation ABG Hemoglobin Oxyhemoglobin Sodium Chloride BUN Creatinine Glucose POC Glucose 134 H Hemoglobin A1c Lactic Acid Calcium Ferritin Lactate Dehydrogenase Troponin T C-Reactive Protein Total Protein Albumin Triglycerides Coronavirus (PCR) 11/27/20 11/27/20 10:07 10:07 WBC RDW Plt Count Lymph % (Auto) Lymph # (Auto) [place] # (Auto) Baso # (Auto) Seg Neutrophils % Seg Neutrophils # D-Dimer ABG pO2 ABG O2 Saturation ABG Hemoglobin Oxyhemoglobin Sodium Chloride BUN Creatinine Glucose 153 H POC Glucose Hemoglobin A1c Lactic Acid Calcium Ferritin 451.0 H Lactate Dehydrogenase 455 H Troponin T C-Reactive Protein 6.70 H Total Protein Albumin Triglycerides Coronavirus (PCR) Allied health notes reviewed: RT
--- NOTE | 2020-11-27 11:43 | XRay Report ---
CHEST 1 VIEW INDICATION / CLINICAL INFORMATION: COVID, resp failure. FINDINGS: SUPPORT DEVICES: None. HEART / MEDIASTINUM: Borderline enlarged LUNGS / PLEURA: Extensive bilateral airspace disease concerning for pneumonia/edema. Signer Name: Armando Carnes MD Signed: 11/27/2020 11:39 AM Workstation Name: [id number]
--- NOTE | 2020-11-27 13:31 | Progress Note ---
Assessment and Plan - Patient Problems (1) Pneumonia due to COVID-19 virus Current Visit: Yes Status: Chronic Plan to address problem: Management per infectious disease. (2) Acute renal failure Current Visit: Yes Status: Acute Plan to address problem: In the setting of acute kidney injury likely prerenal in nature with new onset of COVID-19 pneumonia. Continue to monitor renal parameters which are overall slightly stable. Avoid nephrotoxins and maintain mean arterial pressure above 65 mmHg. Renal ultrasound pending at this time. With elevated urine protein to creatinine ratio high likelihood that she may have some underlying chronic kidney disease and diabetic nephropathy. (3) Acute respiratory failure with hypoxia Current Visit: Yes Status: Chronic Plan to address problem: Patient maria luisa stable on high flow nasal cannula with O2 saturations reviewed. Further recommendations per pulmonology. (4) Hyperglycemia Current Visit: Yes Status: Acute Plan to address problem: Diabetes management per primary attending. (5) Hypertensive urgency Current Visit: Yes Status: Acute Plan to address problem: Blood pressures have improved this morning. We will continue to monitor closely on current regimen. Subjective Date of service: 11/27/20 Principal diagnosis: EJ Interval history: Events overnight reviewed. No acute changes. Renal function reviewed. Patient remains on high flow nasal cannula. Pulmonary and primary attending note reviewed. Objective - Exam Narrative Exam: Patient not directly examined in order to preserve PPE. - Vital Signs Vital signs: Vital Signs - 12hr 11/27/20 11/27/20 11/27/20 04:20 05:45 10:14 Temperature 97.4 F L Pulse Rate 65 65 Respiratory 16 Rate Blood Pressure 103/57 103/57 O2 Sat by Pulse 96 99 Oximetry 11/27/20 11/27/20 10:52 12:25 Temperature 97.9 F Pulse Rate 64 70 Respiratory 24 Rate Blood Pressure 112/55 123/59 O2 Sat by Pulse 92 Oximetry - Lab 11/27/20 03:30 11/27/20 10:07 Most recent lab results ABG pH 7.403 pH Units (7.350-7.450) 11/24/20 22:30 ABG pCO2 38.7 mm Hg 11/24/20 22:30 ABG pO2 38.2 mm Hg (80.0-90.0) L* 11/24/20 22:30 ABG HCO3 23.6 mmol/L (20.0-26.0) 11/24/20 22:30 ABG O2 Saturation 67.0 % (95.0-99.0) L 11/24/20 22:30 Calcium 8.1 mg/dL (8.4-10.2) L 11/27/20 03:30 Medications & Allergies - Medications Allergies/Adverse Reactions: Allergies No Known Allergies Allergy (Verified 11/25/20 00:33) Home Medications: Home Medications Medication Instructions Recorded Confirmed Last Taken Type Metformin HCl [metFORMIN] 1,000 mg PO BID 11/25/20 11/25/20 Unknown History amLODIPine [Norvasc] 5 mg PO DAILY 11/25/20 11/25/20 Unknown History glipiZIDE [Glucotrol] 20 mg PO BID 11/25/20 11/25/20 Unknown History hydroCHLOROthiazide 12.5 mg PO BID 11/25/20 11/25/20 Unknown History [Hydrochlorothiazide] lisinopriL [Zestril] 20 mg PO BID 11/25/20 11/25/20 Unknown History Active Medications: Generic Name Dose Route Start Last Admin Trade Name Freq PRN Reason Stop Dose Admin Acetaminophen 650 mg 11/25/20 00:25 Acetaminophen 325 Mg Tab PO Q4H PRN Pain MILD(1-3)/Fever >100.5/YING Azithromycin 500 mg 11/25/20 22:00 11/26/20 21:23 Azithromycin 250 Mg Tab PO 11/28/20 22:01 500 mg QHS TANYA Administration Dexamethasone 6 mg 11/25/20 10:00 11/27/20 10:38 Dexamethasone 4 Mg/Ml Vial IV 12/03/20 10:01 6 mg Q24HR TANYA Administration Dextrose 50 ml 11/25/20 00:25 Dextrose 50% In Water (25gm) 50 Ml Syringe IV Q30MIN PRN Hypoglycemia Protocol Famotidine 20 mg 11/25/20 22:00 11/27/20 10:38 Famotidine 20 Mg Tab PO 20 mg DAILY TANYA Administration Heparin Sodium (Porcine) 5,000 unit 11/27/20 14:00 Heparin 5,000 Unit/1 Ml Vial SUB-Q Q8HR TANYA Hydralazine HCl 25 mg 11/25/20 17:00 11/27/20 05:45 Hydralazine 25 Mg Tab PO Not Given Q8HR TANYA Hydrochlorothiazide 12.5 mg 11/25/20 14:00 11/27/20 10:38 Hydrochlorothiazide 12.5 Mg Cap PO 12.5 mg BID TANYA Administration Ceftriaxone Sodium 2 gm in 100 mls @ 200 mls/hr 11/25/20 22:00 11/26/20 21:21 Rocephin/Ns 2 Gm/100 Ml IV 11/29/20 22:29 200 mls/hr Q24H TANYA Administration Protocol Sodium Chloride 1,000 mls @ 75 mls/hr 11/25/20 06:30 Nacl 0.9% 1000 Ml IV DIRECT TANYA REMDESIVIR 100 mg/ Sodium 250 mls @ 500 mls/hr 11/26/20 21:00 11/26/20 22:35 Chloride IV 11/29/20 21:29 500 mls/hr Q24HR@2100 TANYA Administration Insulin Human Isoph/Insulin Regular 20 unit 11/26/20 10:00 11/27/20 08:40 Insulin Nph/Regular 70/30 Inj SUB-Q 20 unit BIDDIAB TANYA Administration Insulin Human Lispro 0 unit 11/25/20 07:30 11/27/20 12:41 Insulin Lispro 100 Unit/Ml SUB-Q Not Given ACHS [facility] Protocol Magnesium Hydroxide 30 ml 11/25/20 00:25 Magnesium Hydroxide (Mom) Oral Liqd Udc PO Q4H PRN Constipation Morphine Sulfate 2 mg 11/25/20 00:25 Morphine 2 Mg/1 Ml Inj IV Q4H PRN Pain, Moderate (4-6) Nifedipine 60 mg 11/26/20 14:00 11/27/20 10:48 Nifedipine Xl 60 Mg Tab PO 60 mg QDAY TANYA Administration Ondansetron HCl 4 mg 11/25/20 00:25 Ondansetron 4 Mg/2 Ml Inj IV Q8H PRN Nausea And Vomiting Sodium Chloride 10 ml 11/25/20 10:00 11/27/20 10:39 Sodium Chloride 0.9% 10 Ml Flush Syringe IV 10 ml BID TANYA Administration Sodium Chloride 10 ml 11/25/20 00:25 Sodium Chloride 0.9% 10 Ml Flush Syringe IV PRN PRN LINE FLUSH Sodium Chloride 50 ml 11/25/20 16:00 11/26/20 23:10 Sodium Chloride 0.9% 50 Ml Ivpb IV 11/28/20 21:01 50 ml Q24HR@2100 TANYA Administration Valsartan 80 mg 11/26/20 14:00 11/27/20 10:52 Valsartan 40 Mg Tab PO Not Given BID TANYA
[2020-11-27] MEDS: HEPARIN 5,000 UNIT/1 ML VIAL SUB-Q SCH ×2 (15:26→23:33)
--- NOTE | 2020-11-27 17:15 | Ultrasound Report ---
ULTRASOUND RENAL INDICATION: EJ. COMPARISON: No relevant prior imaging study available. FINDINGS: RIGHT KIDNEY: Size: 11.0 cm. Echogenicity: Increased. Cortical thickness: Normal. Hydronephrosis: None. Cyst or mass: None. Stones: None. LEFT KIDNEY: Size: 9.5 cm. Echogenicity: Increased. Cortical thickness: Normal. Hydronephrosis: None. Cyst or mass: None. Stones: None. Urinary Bladder: No significant abnormality. Free Fluid: None. Additional Findings: Bilateral pleural effusions present.. IMPRESSION 1. Both kidneys are echogenic consistent with medical renal disease. 2. No evidence for hydronephrosis or renal mass. 3. Incidental finding of bilateral pleural effusions.. Signer Name: Trinidad Lawrence MD Signed: 11/27/2020 5:11 PM Workstation Name: [id number]
[2020-11-27] MEDS: SODIUM CHLORIDE 0.9% 1000 ML 1,000 ML IV SCH (17:32)
--- NOTE | 2020-11-27 17:44 | Vascular Lab Report ---
DUPLEX DOPPLER LOWER EXTREMITY VEINS, BILATERAL INDICATION: elevated d-dimer, covid. TECHNIQUE: Duplex doppler imaging was performed through the veins of both lower extremities using venous coleen simona and other maneuvers. COMPARISON: None available. FINDINGS: Right Common Femoral vein: Negative. Right Superficial Femoral vein: Negative. Right Popliteal vein: Negative. Right Calf veins: Negative. Left Common Femoral vein: Negative. Left Superficial Femoral vein: Negative. Left Popliteal vein: Negative. Left Calf veins: Negative. Additional findings: None. IMPRESSION: 1. No sonographic evidence for DVT in either lower extremity. Signer Name: Trinidad Lawrence MD Signed: 11/27/2020 5:39 PM Workstation Name: [id number]
[2020-11-27] MEDS: REMDESIVIR 100 MG in SODIUM CHLORIDE 0.9% 250ML 250 ML IV SCH (20:40)
[2020-11-27] MEDS: SODIUM CHLORIDE 0.9% 50 ML IVPB IV SCH (20:40)
[2020-11-27] MEDS: AZITHROMYCIN 250 MG TAB PO SCH (23:32)
[2020-11-27] MEDS: cefTRIAXone/NS 2 GM/100 ML 2 GM/100 ML BAG IV SCH (23:38)
[2020-11-28 05:58] LABS: Basophils % (Auto) 0.2 % (0.0-1.8); Hematocrit 35.8 % (30.3-42.9); Hemoglobin 11.8 gm/dl (10.1-14.3); Lymphocytes % (Auto) 6.7 % (13.4-35.0); Mean Corpuscular HGB Conc 33 % (30-34); Mean Corpuscular Volume 85 fl (79-97); Monocytes # (Auto) 1.3 K/mm3 (0.0-0.8); Monocytes % (Auto) 8.9 % (0.0-7.3); Platelet Count 769 K/mm3 (140-440); Red Blood Count 4.23 M/mm3 (3.65-5.03); Red Cell Distribution Width 13.4 % (13.2-15.2)
[2020-11-28 06:16] LABS: Alanine Aminotransferase 14 units/L (7-56); Albumin 2.3 g/dL (3.9-5); BUN/Creatinine Ratio 24; Blood Urea Nitrogen 64 mg/dL (7-17); Calcium 7.7 mg/dL (8.4-10.2); Hemolysis Index 4
[2020-11-28] MEDS: hydrALAZINE 25 MG TAB PO SCH (06:36)
[2020-11-28] MEDS: HEPARIN 5,000 UNIT/1 ML VIAL SUB-Q SCH (06:37)
--- NOTE | 2020-11-28 08:04 | Progress Note ---
Assessment and Plan Assessment and plan: The patient is a 60-year-old female with diabetes and hypertension admitted to the hospital with weakness going on for about 6 days prior to admission. Upon evaluation in the ER, she was noted to be hypoxic on room air requiring supplemental oxygen. Chest x-ray showed bilateral pneumonia. Due to concerns for COVID-19, infectious diseases was consulted. Patient has severe hyperglycemia. D-dimer 790, procalcitonin 0.81, creatinine 2.1, CRP 32.5, ferritin 637, LDH 770. Patient is on high flow nasal cannula. Acute hypoxic respiratory failure COVID-19 bilateral pneumonia with bilateral pleural effusion Covid coagulopathy. Sepsis Diabetes mellitus type 2 Hypertension Acute kidney injury 11/26/2020. Continue IV dexamethasone 6 mg daily for total of 10 days. Continue remdesivir. Continue empiric antibiotics due to elevated procalcitonin. Continue prophylactic anticoagulation based on D-dimer per protocol. Trend inflammatory markers of ferritin, LDH, D-dimer and CRP. Continue O2 to maintain sats greater than 92%, wean as tolerated 11/27/2020. Remdesivir scheduled to complete on 11/29/2020 and dexamethasone on 12/03/2020. Continue empiric antibiotics of Rocephin and azithromycin for elevated procalcitonin. Continue heparin drip per pulmonary recommendations. Recheck inflammatory markers/D-dimer. Patient with significant hypoxia currently on HFNC 20 L 11/28/2020. Continue remdesivir and dexamethasone. Remdesivir scheduled to complete on tomorrow. Continue antibiotics of Rocephin and azithromycin per ID recommendations. Patient currently on high flow nasal cannula of which was decreased from 20L/min to 12L/min last night and now 8 L/min this morning. Continue to wean oxygen and monitor closely. Continue heparin drip per pulmonary recommendations. Creatinine has increased from 2.1 to 2.7. Baseline creatinine reported to be 0.8 2019 per [place] physician. Pt. likely has possible underlying CKD with hx HTN/DM. Renal ultrasound reveals findings consistent with medical renal disease. No evidence of hydronephrosis or renal mass. Nephrology following. I spoke with her daughter (Celina Mcclain at [phone]) and updated her with POC. History Interval history: The patient is a 60-year-old female with diabetes and hypertension admitted to the hospital with weakness going on for about 6 days prior to admission. Upon evaluation in the ER, she was noted to be hypoxic on room air requiring supplemental oxygen. Chest x-ray showed bilateral pneumonia. Due to concerns for COVID-19, infectious diseases was consulted. Patient has severe hyperglycemia. D-dimer 790, procalcitonin 0.81, creatinine 2.1, CRP 32.5, ferritin 637, LDH 770. Patient is on high flow nasal cannula. No new issues overnight Hospitalist Physical - Constitutional Vitals: Temp Pulse Resp BP Pulse Ox 98.3 F 65 18 122/53 95 11/28/20 06:00 11/28/20 06:36 11/28/20 06:00 11/28/20 06:36 11/28/20 06:00 General appearance: Present: mild distress, well-nourished - EENT Eyes: Present: PERRL, EOM intact ENT: hearing intact, clear oral mucosa, dentition normal - Neck Neck: Present: supple, normal ROM - Respiratory Respiratory effort: normal Respiratory: bilateral: CTA - Cardiovascular Rhythm: regular Heart Sounds: Present: S1 & S2. Absent: gallop, rub - Extremities Extremities: no ischemia, No edema, Full ROM - Abdominal General gastrointestinal: soft, non-tender, non-distended, normal bowel sounds - Integumentary Integumentary: Present: clear, warm, dry - Neurologic Neurologic: CNII-XII intact, moves all extremities HEART Score - HEART Score Troponin: Troponin T 0.025 ng/mL (0.00-0.029) 11/25/20 17:54 Results - Labs CBC & Chem 7: 11/28/20 04:58 11/28/20 04:58 Labs: Laboratory Last Values WBC 14.4 K/mm3 (4.5-11.0) H 11/28/20 04:58 RBC 4.23 M/mm3 (3.65-5.03) 11/28/20 04:58 Hgb 11.8 gm/dl (10.1-14.3) 11/28/20 04:58 Hct 35.8 % (30.3-42.9) 11/28/20 04:58 MCV 85 fl (79-97) 11/28/20 04:58 MCH 28 pg (28-32) 11/28/20 04:58 MCHC 33 % (30-34) 11/28/20 04:58 RDW 13.4 % (13.2-15.2) 11/28/20 04:58 Plt Count 769 K/mm3 (140-440) H 11/28/20 04:58 Lymph % (Auto) 6.7 % (13.4-35.0) L 11/28/20 04:58 [place] % (Auto) 8.9 % (0.0-7.3) H 11/28/20 04:58 Eos % (Auto) 0.0 % (0.0-4.3) 11/28/20 04:58 Baso % (Auto) 0.2 % (0.0-1.8) 11/28/20 04:58 Lymph # (Auto) 1.0 K/mm3 (1.2-5.4) L 11/28/20 04:58 [place] # (Auto) 1.3 K/mm3 (0.0-0.8) H 11/28/20 04:58 Eos # (Auto) 0.0 K/mm3 (0.0-0.4) 11/28/20 04:58 Baso # (Auto) 0.0 K/mm3 (0.0-0.1) 11/28/20 04:58 Seg Neutrophils % 84.2 % (40.0-70.0) H 11/28/20 04:58 Seg Neutrophils # 12.1 K/mm3 (1.8-7.7) H 11/28/20 04:58 PT 14.4 Sec. (12.2-14.9) 11/26/20 05:11 INR 1.13 (0.87-1.13) 11/26/20 05:11 APTT 30.5 Sec. (24.2-36.6) 11/25/20 17:54 D-Dimer 429.38 ng/mlDDU (0-234) H 11/27/20 10:07 Heparin Anti-Xa Level < 0.10 U.I./ml (0.3-0.7) L 11/28/20 04:58 ABG pH 7.435 (7.320-7.450) 11/27/20 14:12 POC ABG pCO2 34.9 mmHg (32.0-48.0) 11/27/20 14:12 ABG pCO2 38.7 mm Hg 11/24/20 22:30 POC ABG pO2 53.6 mmHg (83-108) L 11/27/20 14:12 ABG pO2 38.2 mm Hg (80.0-90.0) L* 11/24/20 22:30 POC ABG HCO3 22.9 11/27/20 14:12 ABG HCO3 23.6 mmol/L (20.0-26.0) 11/24/20 22:30 ABG O2 Saturation 67.0 % (95.0-99.0) L 11/24/20 22:30 ABG O2 Content 8.6 (0.0-44) 11/24/20 22:30 POC ABG Base Excess -0.8 11/27/20 14:12 ABG Base Excess -1.0 mmol/L (-2.0-3.0) 11/24/20 22:30 ABG Hemoglobin 13.8 (12.0-17.5) 11/27/20 14:12 ABG Oxyhemoglobin 89.0 (94-98) L 11/27/20 14:12 ABG Carboxyhemoglobin 1.6 % (0.0-5.0) 11/24/20 22:30 ABG Methemoglobin 0.1 (0.0-1.5) 11/27/20 14:12 ABG Sodium 136.5 mmol/L (136.0-145.0) 11/27/20 14:12 ABG Potassium 3.2 mmol/L (3.40-4.50) L 11/27/20 14:12 ABG Chloride 103.0 mmol/L (98-107) 11/27/20 14:12 ABG Glucose 169 mg/dL (65-95) H 11/27/20 14:12 Oxyhemoglobin 65.3 % (95.0-99.0) L 11/24/20 22:30 Carboxyhemoglobin 0.6 (0.5-1.5) 11/27/20 14:12 FiO2 40 11/27/20 14:12 Sodium 141 mmol/L (137-145) 11/28/20 04:58 Potassium 3.8 mmol/L (3.6-5.0) 11/28/20 04:58 Chloride 105.1 mmol/L (98-107) 11/28/20 04:58 Carbon Dioxide 24 mmol/L (22-30) 11/28/20 04:58 Anion Gap 16 mmol/L 11/28/20 04:58 BUN 64 mg/dL (7-17) H 11/28/20 04:58 Creatinine 2.7 mg/dL (0.6-1.2) H 11/28/20 04:58 Estimated GFR 22 ml/min 11/28/20 04:58 BUN/Creatinine Ratio 24 % 11/28/20 04:58 Glucose 124 mg/dL (65-100) H 11/28/20 04:58 POC Glucose 265 mg/dL (70-105) H 11/27/20 21:29 Hemoglobin A1c 16.1 % (4-6) H 11/25/20 00:58 Ketones Quantitative Negative (Negative) 11/24/20 22:32 Lactic Acid 1.20 mmol/L (0.7-2.0) 11/25/20 05:07 Calcium 7.7 mg/dL (8.4-10.2) L 11/28/20 04:58 Ferritin 451.0 ng/mL (10.0-200.0) H 11/27/20 10:07 Total Bilirubin < 0.20 mg/dL (0.1-1.2) 11/28/20 04:58 AST 15 units/L (5-40) 11/28/20 04:58 ALT 14 units/L (7-56) 11/28/20 04:58 Alkaline Phosphatase 74 units/L (35-129) 11/28/20 04:58 Lactate Dehydrogenase 455 units/L (91-180) H 11/27/20 10:07 Troponin T 0.025 ng/mL (0.00-0.029) 11/25/20 17:54 C-Reactive Protein 6.70 mg/dL (0.00-1.30) H 11/27/20 10:07 Total Protein 5.5 g/dL (6.3-8.2) L 11/28/20 04:58 Albumin 2.3 g/dL (3.9-5) L 11/28/20 04:58 Albumin/Globulin Ratio 0.7 % 11/28/20 04:58 Triglycerides 195 mg/dL (2-149) H 11/24/20 22:32 Cholesterol 175 mg/dL (50-199) 11/24/20 22:32 LDL Cholesterol Direct 96 mg/dL (50-130) 11/24/20 22:32 HDL Cholesterol 45 mg/dL (40-59) 11/24/20 22: Cholesterol/HDL Ratio 3.88 % 11/24/20 22:32 Procalcitonin 0.40 ng/mL (<0.15) 11/27/20 10:07 Arterial Blood Glucose 169 mg/dL (65-95) H 11/27/20 14:12 Arterial Blood Ionized Calcium 4.5 mg/dL (4.6-5.3) L 11/27/20 14:12 Urine Color Yellow (Yellow) 11/24/20 Unknown Urine Turbidity Slightly-cloudy (Clear) 11/24/20 Unknown Urine pH 6.0 (5.0-7.0) 11/24/20 Unknown Ur Specific [place] 1.022 (1.003-1.030) 11/24/20 Unknown Urine Protein >500 mg/dL (Negative) 11/24/20 Unknown Urine Glucose (UA) >=500 mg/dL (Negative) 11/24/20 Unknown Urine Ketones Tr mg/dL (Negative) 11/24/20 Unknown Urine Blood Neg (Negative) 11/24/20 Unknown Urine Nitrite Neg (Negative) 11/24/20 Unknown Urine Bilirubin Neg (Negative) 11/24/20 Unknown Urine Urobilinogen < 2.0 mg/dL (<2.0) 11/24/20 Unknown Ur Leukocyte Esterase Neg (Negative) 11/24/20 Unknown Urine WBC (Auto) 1.0 /HPF (0.0-6.0) 11/24/20 Unknown Urine RBC (Auto) 1.0 /HPF (0.0-6.0) 11/24/20 Unknown U Epithel Cells (Auto) 2.0 /HPF (0-13.0) 11/24/20 Unknown Urine Mucus Few /HPF 11/24/20 Unknown Coronavirus (PCR) Positive (Negative) A 11/25/20 Unknown Microbiology: Microbiology 11/24/20 22:32 Peripheral/Venous Blood Culture - Preliminary NO GROWTH AFTER 72 HOURS 11/24/20 23:20 Peripheral/Venous Blood Culture - Preliminary NO GROWTH AFTER 72 HOURS Kapoor/IV: Voiding Method Bedside Commode IV Catheter Type [Left Forearm INT / Saline Lock ] Active Medications - Current Medications Current Medications: Generic Name Dose Route Start Last Admin Trade Name Freq PRN Reason Stop Dose Admin Acetaminophen 650 mg 11/25/20 00:25 Acetaminophen 325 Mg Tab PO Q4H PRN Pain MILD(1-3)/Fever >100.5/YING Azithromycin 500 mg 11/25/20 22:00 11/27/20 23:32 Azithromycin 250 Mg Tab PO 11/28/20 22:01 500 mg QHS TANYA Administration Dexamethasone 6 mg 11/25/20 10:00 11/27/20 10:38 Dexamethasone 4 Mg/Ml Vial IV 12/03/20 10:01 6 mg Q24HR TANYA Administration Dextrose 50 ml 11/25/20 00:25 Dextrose 50% In Water (25gm) 50 Ml Syringe IV Q30MIN PRN Hypoglycemia Protocol Famotidine 20 mg 11/25/20 22:00 11/27/20 10:38 Famotidine 20 Mg Tab PO 20 mg DAILY TANYA Administration Heparin Sodium (Porcine) 5,000 unit 11/27/20 14:00 11/28/20 06:37 Heparin 5,000 Unit/1 Ml Vial SUB-Q 5,000 unit Q8HR TANYA Administration Hydralazine HCl 25 mg 11/25/20 17:00 11/28/20 06:36 Hydralazine 25 Mg Tab PO Not Given Q8HR TANYA Hydrochlorothiazide 12.5 mg 11/25/20 14:00 11/27/20 23:32 Hydrochlorothiazide 12.5 Mg Cap PO 12.5 mg BID TANYA Administration Ceftriaxone Sodium 2 gm in 100 mls @ 200 mls/hr 11/25/20 22:00 11/27/20 23:38 Rocephin/Ns 2 Gm/100 Ml IV 11/29/20 22:29 200 mls/hr Q24H TANYA Administration Protocol Sodium Chloride 1,000 mls @ 75 mls/hr 11/25/20 06:30 11/27/20 17:32 Nacl 0.9% 1000 Ml IV 75 mls/hr DIRECT TANYA Administration REMDESIVIR 100 mg/ Sodium 250 mls @ 500 mls/hr 11/26/20 21:00 11/27/20 20:40 Chloride IV 11/29/20 21:29 500 mls/hr Q24HR@2100 TANYA Administration Insulin Human Isoph/Insulin Regular 20 unit 11/26/20 10:00 11/27/20 17:21 Insulin Nph/Regular 70/30 Inj SUB-Q 20 unit BIDDIAB TANYA Administration Insulin Human Lispro 0 unit 11/25/20 07:30 11/27/20 23:40 Insulin Lispro 100 Unit/Ml SUB-Q 6 unit ACHS TANYA Administration Protocol Magnesium Hydroxide 30 ml 11/25/20 00:25 Magnesium Hydroxide (Mom) Oral Liqd Udc PO Q4H PRN Constipation Morphine Sulfate 2 mg 11/25/20 00:25 Morphine 2 Mg/1 Ml Inj IV Q4H PRN Pain, Moderate (4-6) Nifedipine 60 mg 11/26/20 14:00 11/27/20 10:48 Nifedipine Xl 60 Mg Tab PO 60 mg QDAY TANYA Administration Ondansetron HCl 4 mg 11/25/20 00:25 Ondansetron 4 Mg/2 Ml Inj IV Q8H PRN Nausea And Vomiting Sodium Chloride 10 ml 11/25/20 10:00 11/27/20 23:34 Sodium Chloride 0.9% 10 Ml Flush Syringe IV 10 ml BID TANYA Administration Sodium Chloride 10 ml 11/25/20 00:25 Sodium Chloride 0.9% 10 Ml Flush Syringe IV PRN PRN LINE FLUSH Sodium Chloride 50 ml 11/25/20 16:00 11/27/20 20:40 Sodium Chloride 0.9% 50 Ml Ivpb IV 11/28/20 21:01 50 ml Q24HR@2100 TANYA Administration Valsartan 80 mg 11/26/20 14:00 11/27/20 23:37 Valsartan 40 Mg Tab PO 80 mg BID TANYA Administration Nutrition/Malnutrition Assess - Dietary Evaluation Nutrition/Malnutrition Findings: Nutrition Notes Start: 11/25/20 12:52 Freq: Status: Active Protocol: Document 11/25/20 12:53 EN (Rec: 11/25/20 12:59 EN [id number]) Co-Sign 11/25/20 12:53 MK Nutrition Notes Need for Assessment generated from: MD Order,Education Initial or Follow up Assessment Current Diagnosis Acute Kidney Injury,Diabetes, Hypertension Other Pertinent Diagnosis Suspected COVID-19, Pneu, ARF Current Diet Consistent CHO Labs/Tests POC BG 451 Hgb A1c 16.1 Pertinent Medications Decadron Humalog Humulin Height 5 ft 2 in Weight 86.183 kg [place] Body Weight (kg) 50.00 BMI 34.7 Weight Status Obese Subjective/Other Information MD order for diet education. Unable to reach pt by phone x2 . Per RN, pt consuming 100% of meals with a good appetite. RN denies N/V/D. Percent of energy/protein needs met: 100%/100% Burn Absent Trauma Absent GI Symptoms None Food Allergy No Current % PO Good (75-100%) Minimum of two criteria No physical signs of malnutrition #1 Nutrition Diagnosis No nutrition diagnosis at this time Is patient on ventilator? No Is Patient Ambulatory and/or Out of Bed Yes REE-([place]-St. Jeor-ambulatory/OOB) [ 1787.604 [id number]] Kcal/Kg value to use for calculation 18 Approximate Energy Requirements Using 1551 kcal/Kg Calculation Used for Recommendations Kcal/kg Additional Notes Protien: 0.8-1.2g/kg AdBW 68kg (54-82g) Fluid: 500mL + output Nutrition Intervention Change Diet Order: Continue current diet Goal #1 Meet at least 80% of energy and protein needs via PO Goal #2 Consistent CHO diet understanding Anticipated Discharge Needs: Consistent CHO Follow-Up By: 11/30/20 Additional Comments F/u for diet education and assessment
[2020-11-28] MEDS: INSULIN LISPRO 100 UNIT/ML SUB-Q SCH ×2 (09:06→12:55)
[2020-11-28] MEDS: INSULIN NPH/REGULAR 70/30 INJ SUB-Q SCH (09:26)
[2020-11-28] MEDS: hydroCHLOROthiazide 12.5 MG CAP PO SCH (10:06)
[2020-11-28] MEDS: SODIUM CHLORIDE 0.9% 1000 ML 1,000 ML IV SCH (10:06)
[2020-11-28] MEDS: VALSARTAN 40 MG TAB PO SCH (10:07)
[2020-11-28] MEDS: NIFEdipine XL 60 MG TAB PO SCH (10:07)
[2020-11-28] MEDS: FAMOTIDINE 20 MG TAB PO SCH (10:08)
[2020-11-28] MEDS: dexAMETHasone 4 MG/ML VIAL IV SCH (10:12)
--- NOTE | 2020-11-28 11:04 | Progress Note ---
Assessment and Plan Acute hypoxemic respiratory failure secondary to COVID-19 infection Bilateral pneumonia Type 2 DM with hyperglycemia Morbid obesity EJ - continue to wean supplemental oxygen for target O2 sats > 92% -CXR, ABG today -Continue awake proning as tolerated - bronchodilators with pulmonary hygiene per RT - accuchecks with glycemic control per SSI (While critically ill target blood glucose of 140-180 mg/dL; avoid hypoglycemia) - avoid benzodiazepines, reduce the possibility of delirium - completed anti-infectives per ID recs for CAP - prn analgesia per pain score - continue to maintain of sleep-wake cycle, avoid delirium - G.I. & VTE prophylaxis( anticoagulated on heparin, will switch to prophylaxis dosing) -continue avoid nephrotoxins, adjust all medications for CrCL/GFR - PT/OT/ROM exercises - mobility protocols for pressure ulcer prevention - Monitor hemodynamics closely - continue other care per attending / other consultants COVID SPECIFIC INTERVENTIONS -continue IV/PO Dexamethasone 6 mg daily x 10 days -continue Remdesivir, D3 -Continue empiric antibiotics due to elevated procalcitonin, - Continue to monitor inflammatory markers per facility protocol - ferritin, D dimer, CRP - continue anticoagulation per system Protocol based on d-dimer and clinical considerations (on therapeutic heparin) - Continue contact and airborne isolation .... Re-evaluate in am & prn CONDITION: CRITICAL PROGNOSIS: GUARDED CODE STATUS: FULL CODE The high probability of a clinically significant, sudden or life-threatening deterioration of the [respiratory, renal, endocrine] system(s) required my full and direct attention, intervention and personal management. The aggregate crit ical care time was [33] minutes without overlap. Time includes spent on; [x] Data Review and interpretation [x] Patient assessment and monitoring of vital signs [x] Documentation [x] Medication orders and management Subjective Date of service: 11/28/20 Principal diagnosis: EJ Interval history: Patient is seen today for: Acute hypoxemic respiratory failure; Bilateral pneumonia; COVID-19 infection; Type 2 DM: Obesity Seen and examined at bedside; 24hour events reviewed; nursing and respiratory care staff consulted; no adverse overnight events reported to me; resting peacefully in bed; remains on high flow oxygen therapy 20L and 100%. Denies any fevers or chills, no nausea or vomitng, no diarrhea. Denies any chest pain, has a lingering cough , improving shortness of breath States she did sleep prone last night Objective Vital Signs - 12hr 11/27/20 11/27/20 11/27/20 23:30 23:33 23:37 Temperature 98.5 F Pulse Rate 70 70 Respiratory Rate Blood Pressure 130/64 130/64 O2 Sat by Pulse Oximetry 11/28/20 11/28/20 11/28/20 02:16 06:00 06:36 Temperature 98.3 F Pulse Rate 65 65 Respiratory 18 Rate Blood Pressure 122/53 122/53 O2 Sat by Pulse 97 95 Oximetry 11/28/20 11/28/20 11/28/20 08:40 09:21 10:07 Temperature Pulse Rate 65 Respiratory Rate Blood Pressure 122/53 O2 Sat by Pulse 97 94 Oximetry Constitutional: no acute distress Eyes: non-icteric ENT: oropharynx moist, other (large neck) Neck: supple, no lymphadenopathy, no JVD Effort: mildly labored Ascultation: Bilateral: diminished breath sounds Cardiovascular: regular rate and rhythm, other (S1,S2) Gastrointestinal: normoactive bowel sounds, soft, non-tender, non-distended Integumentary: normal Extremities: no cyanosis, no edema Neurologic: normal mental status, non-focal exam, pupils equal and round, motor strength normal and Psychiatric: mood appropriate, affect normal CBC and BMP: 11/28/20 04:58 11/28/20 04:58 ABG, PT/INR, D-dimer: ABG ABG pH 7.435 (7.320-7.450) 11/27/20 14:12 POC ABG pCO2 34.9 mmHg (32.0-48.0) 11/27/20 14:12 ABG pCO2 38.7 mm Hg 11/24/20 22:30 POC ABG pO2 53.6 mmHg (83-108) L 11/27/20 14:12 ABG pO2 38.2 mm Hg (80.0-90.0) L* 11/24/20 22:30 POC ABG HCO3 22.9 11/27/20 14:12 ABG O2 Saturation 67.0 % (95.0-99.0) L 11/24/20 22:30 PT/INR, D-dimer PT 14.4 Sec. (12.2-14.9) 11/26/20 05:11 INR 1.13 (0.87-1.13) 11/26/20 05:11 D-Dimer 429.38 ng/mlDDU (0-234) H 11/27/20 10:07 Abnormal lab findings: Abnormal Labs 11/24/20 11/24/20 11/24/20 22:30 22:32 22:32 WBC RDW Plt Count Lymph % (Auto) 6.9 L [place] % (Auto) Lymph # (Auto) 0.7 L [place] # (Auto) Baso # (Auto) Seg Neutrophils % 86.5 H Seg Neutrophils # 8.8 H D-Dimer Heparin Anti-Xa Level POC ABG pO2 ABG pO2 38.2 L* ABG O2 Saturation 67.0 L ABG Hemoglobin 9.3 L ABG Oxyhemoglobin ABG Potassium ABG Glucose Oxyhemoglobin 65.3 L Sodium 133 L Chloride 94.8 L BUN 42 H Creatinine 2.1 H Glucose 720 H* POC Glucose Hemoglobin A1c Lactic Acid Calcium 7.7 L Ferritin Lactate Dehydrogenase Troponin T 0.076 H C-Reactive Protein Total Protein Albumin 2.5 L Triglycerides 195 H Arterial Blood Glucose Arterial Blood Ionized Calcium Coronavirus (PCR) 11/24/20 11/24/20 11/24/20 22:32 22:32 22:32 WBC RDW Plt Count Lymph % (Auto) Latimer % (Auto) Lymph # (Auto) Latimer # (Auto) Baso # (Auto) Seg Neutrophils % Seg Neutrophils # D-Dimer 790.01 H Heparin Anti-Xa Level POC ABG pO2 ABG pO2 ABG O2 Saturation ABG Hemoglobin ABG Oxyhemoglobin ABG Potassium ABG Glucose Oxyhemoglobin Sodium Chloride BUN Creatinine Glucose POC Glucose Hemoglobin A1c Lactic Acid Calcium Ferritin 637.1 H Lactate Dehydrogenase 770 H Troponin T C-Reactive Protein 32.50 H Total Protein Albumin Triglycerides Arterial Blood Glucose Arterial Blood Ionized Calcium Coronavirus (PCR) 11/25/20 11/25/20 11/25/20 00:47 00:58 00:58 WBC RDW Plt Count Lymph % (Auto) Latimer % (Auto) Lymph # (Auto) Latimer # (Auto) Baso # (Auto) Seg Neutrophils % Seg Neutrophils # D-Dimer Heparin Anti-Xa Level POC ABG pO2 ABG pO2 ABG O2 Saturation ABG Hemoglobin ABG Oxyhemoglobin ABG Potassium ABG Glucose Oxyhemoglobin Sodium Chloride BUN Creatinine Glucose POC Glucose 522 H Hemoglobin A1c 16.1 H Lactic Acid 2.60 H* Calcium Ferritin Lactate Dehydrogenase Troponin T C-Reactive Protein Total Protein Albumin Triglycerides Arterial Blood Glucose Arterial Blood Ionized Calcium Coronavirus (PCR) 11/25/20 11/25/20 11/25/20 07:56 12:33 16:37 WBC RDW Plt Count Lymph % (Auto) Latimer % (Auto) Lymph # (Auto) Latimer # (Auto) Baso # (Auto) Seg Neutrophils % Seg Neutrophils # D-Dimer Heparin Anti-Xa Level POC ABG pO2 ABG pO2 ABG O2 Saturation ABG Hemoglobin ABG Oxyhemoglobin ABG Potassium ABG Glucose Oxyhemoglobin Sodium Chloride BUN Creatinine Glucose POC Glucose 451 H 440 H 358 H Hemoglobin A1c Lactic Acid Calcium Ferritin Lactate Dehydrogenase Troponin T C-Reactive Protein Total Protein Albumin Triglycerides Arterial Blood Glucose Arterial Blood Ionized Calcium Coronavirus (PCR) 11/25/20 11/25/20 11/26/20 21:54 Unknown 05:11 WBC 15.7 H RDW 13.0 L Plt Count 561 H Lymph % (Auto) 6.4 L [place] % (Auto) Lymph # (Auto) 1.0 L [place] # (Auto) 0.9 H Baso # (Auto) 0.2 H Seg Neutrophils % 87.1 H Seg Neutrophils # 13.6 H D-Dimer Heparin Anti-Xa Level POC ABG pO2 ABG pO2 ABG O2 Saturation ABG Hemoglobin ABG Oxyhemoglobin ABG Potassium ABG Glucose Oxyhemoglobin Sodium Chloride BUN Creatinine Glucose POC Glucose 375 H Hemoglobin A1c Lactic Acid Calcium Ferritin Lactate Dehydrogenase Troponin T C-Reactive Protein Total Protein Albumin Triglycerides Arterial Blood Glucose Arterial Blood Ionized Calcium Coronavirus (PCR) Positive A 11/26/20 11/26/20 11/26/20 05:11 07:56 11:38 WBC RDW Plt Count Lymph % (Auto) Latimer % (Auto) Lymph # (Auto) Latimer # (Auto) Baso # (Auto) Seg Neutrophils % Seg Neutrophils # D-Dimer Heparin Anti-Xa Level POC ABG pO2 ABG pO2 ABG O2 Saturation ABG Hemoglobin ABG Oxyhemoglobin ABG Potassium ABG Glucose Oxyhemoglobin Sodium 136 L Chloride BUN 52 H Creatinine 2.1 H Glucose 356 H POC Glucose 353 H 324 H Hemoglobin A1c Lactic Acid Calcium 7.8 L Ferritin Lactate Dehydrogenase Troponin T C-Reactive Protein Total Protein Albumin Triglycerides Arterial Blood Glucose Arterial Blood Ionized Calcium Coronavirus (PCR) 11/26/20 11/26/20 11/27/20 16:54 20:59 03:30 WBC RDW Plt Count Lymph % (Auto) Latimer % (Auto) Lymph # (Auto) Latimer # (Auto) Baso # (Auto) Seg Neutrophils % Seg Neutrophils # D-Dimer Heparin Anti-Xa Level POC ABG pO2 ABG pO2 ABG O2 Saturation ABG Hemoglobin ABG Oxyhemoglobin ABG Potassium ABG Glucose Oxyhemoglobin Sodium Chloride BUN 64 H Creatinine 2.5 H Glucose 149 H POC Glucose 221 H 199 H Hemoglobin A1c Lactic Acid Calcium 8.1 L Ferritin Lactate Dehydrogenase Troponin T C-Reactive Protein Total Protein 5.4 L D Albumin 2.3 L Triglycerides Arterial Blood Glucose Arterial Blood Ionized Calcium Coronavirus (PCR) 11/27/20 11/27/20 11/27/20 03:30 07:58 10:07 WBC RDW Plt Count 732 H Lymph % (Auto) Latimer % (Auto) Lymph # (Auto) Latimer # (Auto) Baso # (Auto) Seg Neutrophils % Seg Neutrophils # D-Dimer 429.38 H Heparin Anti-Xa Level POC ABG pO2 ABG pO2 ABG O2 Saturation ABG Hemoglobin ABG Oxyhemoglobin ABG Potassium ABG Glucose Oxyhemoglobin Sodium Chloride BUN Creatinine Glucose POC Glucose 134 H Hemoglobin A1c Lactic Acid Calcium Ferritin Lactate Dehydrogenase Troponin T C-Reactive Protein Total Protein Albumin Triglycerides Arterial Blood Glucose Arterial Blood Ionized Calcium Coronavirus (PCR) 11/27/20 11/27/20 11/27/20 10:07 10:07 12:03 WBC RDW Plt Count Lymph % (Auto) Latimer % (Auto) Lymph # (Auto) Latimer # (Auto) Baso # (Auto) Seg Neutrophils % Seg Neutrophils # D-Dimer Heparin Anti-Xa Level POC ABG pO2 ABG pO2 ABG O2 Saturation ABG Hemoglobin ABG Oxyhemoglobin ABG Potassium ABG Glucose Oxyhemoglobin Sodium Chloride BUN Creatinine Glucose 153 H POC Glucose 111 H Hemoglobin A1c Lactic Acid Calcium Ferritin 451.0 H Lactate Dehydrogenase 455 H Troponin T C-Reactive Protein 6.70 H Total Protein Albumin Triglycerides Arterial Blood Glucose Arterial Blood Ionized Calcium Coronavirus (PCR) 11/27/20 11/27/20 11/27/20 14:12 16:25 21:29 WBC RDW Plt Count Lymph % (Auto) Latimer % (Auto) Lymph # (Auto) Latimer # (Auto) Baso # (Auto) Seg Neutrophils % Seg Neutrophils # D-Dimer Heparin Anti-Xa Level POC ABG pO2 53.6 L ABG pO2 ABG O2 Saturation ABG Hemoglobin ABG Oxyhemoglobin 89.0 L ABG Potassium 3.2 L ABG Glucose 169 H Oxyhemoglobin Sodium Chloride BUN Creatinine Glucose POC Glucose 192 H 265 H Hemoglobin A1c Lactic Acid Calcium Ferritin Lactate Dehydrogenase Troponin T C-Reactive Protein Total Protein Albumin Triglycerides Arterial Blood Glucose 169 H Arterial Blood Ionized Calcium 4.5 L Coronavirus (PCR) 11/28/20 11/28/20 11/28/20 04:58 04:58 04:58 WBC 14.4 H RDW Plt Count 769 H Lymph % (Auto) 6.7 L [place] % (Auto) 8.9 H Lymph # (Auto) 1.0 L [place] # (Auto) 1.3 H Baso # (Auto) Seg Neutrophils % 84.2 H Seg Neutrophils # 12.1 H D-Dimer Heparin Anti-Xa Level < 0.10 L POC ABG pO2 ABG pO2 ABG O2 Saturation ABG Hemoglobin ABG Oxyhemoglobin ABG Potassium ABG Glucose Oxyhemoglobin Sodium Chloride BUN 64 H Creatinine 2.7 H Glucose 124 H POC Glucose Hemoglobin A1c Lactic Acid Calcium 7.7 L Ferritin Lactate Dehydrogenase Troponin T C-Reactive Protein Total Protein 5.5 L Albumin 2.3 L Triglycerides Arterial Blood Glucose Arterial Blood Ionized Calcium Coronavirus (PCR) 11/28/20 08:05 WBC RDW Plt Count Lymph % (Auto) Latimer % (Auto) Lymph # (Auto) Latimer # (Auto) Baso # (Auto) Seg Neutrophils % Seg Neutrophils # D-Dimer Heparin Anti-Xa Level POC ABG pO2 ABG pO2 ABG O2 Saturation ABG Hemoglobin ABG Oxyhemoglobin ABG Potassium ABG Glucose Oxyhemoglobin Sodium Chloride BUN Creatinine Glucose POC Glucose 116 H Hemoglobin A1c Lactic Acid Calcium Ferritin Lactate Dehydrogenase Troponin T C-Reactive Protein Total Protein Albumin Triglycerides Arterial Blood Glucose Arterial Blood Ionized Calcium Coronavirus (PCR) [facility] notes reviewed: RT
--- NOTE | 2020-11-28 11:20 | Discharge Summary ---
Providers - Providers Date of Admission: 11/25/20 08:54 Date of discharge: 11/28/20 Attending physician: KADI DALY 11/25/20 00:25 Consult to Physician [CONS] Routine Comment: Consulting Provider: CLAIRE DE LOS SANTOS Physician Instructions: Reason For Exam: Pneumonia , Hypoxia R/O Covid-19 11/25/20 00:26 Consult to Dietitian/Nutrition [CONS] Routine Physician Instructions: Reason For Exam: Reason for Consult: Diet education 11/25/20 00:42 Consult to Physician [CONS] Routine Comment: Consulting Provider: MONI CERVANTES Physician Instructions: Reason For Exam: Acute respiratory failure, Pneumonia R/O Covid-19 11/25/20 06:29 Consult to Physician [CONS] Routine Comment: Consulting Provider: CELSO RAZO Physician Instructions: Reason For Exam: Acute renal failure 11/25/20 16:24 Consult to Cardiology [CONS] Routine Consulting Provider: ANASTASIYA HAYS Reason For Exam: NSTEMI Hospitalization Reason for admission: COVID PNA Condition: Stable Hospital course: The patient is a 60-year-old female with diabetes and hypertension admitted to the hospital with weakness going on for about 6 days prior to admission. Upon evaluation in the ER, she was noted to be hypoxic on room air requiring supplemental oxygen. Chest x-ray showed bilateral pneumonia. Also, patient had severe hyperglycemia with a blood sugar over 700.. D-dimer 790, procalcitonin 0.81, creatinine 2.1, CRP 32.5, ferritin 637, LDH 770. Patient was on high flow nasal cannula. The patient was admitted with diagnosis of acute hypoxic respiratory failure, COVID-19 bilateral pneumonia with bilateral pleural effusions, Covid coagulopathy, sepsis, diabetes mellitus type 2 uncontrolled, hypertension and acute kidney injury. ID recommended further management and treatment with IV dexamethasone and remdesivir. Patient also had elevated troponin and was seen by cardiology in consultation. Cardiology felt that there were no active cardiac issues and no cardiac work-up was recommended for an isolated troponin rise which was attributed to renal insufficiency. With regards to the elevated creatinine, nephrology was consulted and reported patient had acute kidney injury likely related to sepsis from COVID-19 pneumonia versus vasomotor nephropathy from dehydration. Renal ultrasound did not show any mass or hydronephrosis. Hospital course: 11/26/2020. Continue IV dexamethasone 6 mg daily for total of 10 days. Continue remdesivir. Continue empiric antibiotics due to elevated procalcitonin. Continue prophylactic anticoagulation based on D-dimer per protocol. Trend inflammatory markers of ferritin, LDH, D-dimer and CRP. Continue O2 to maintain sats greater than 92%, wean as tolerated 11/27/2020. Remdesivir scheduled to complete on 11/29/2020 and dexamethasone on 12/03/2020. Continue empiric antibiotics of Rocephin and azithromycin for elevated procalcitonin. Continue heparin drip per pulmonary recommendations. Recheck inflammatory markers/D-dimer. Patient with significant hypoxia currently on HFNC 20 L 11/28/2020. Continue remdesivir and dexamethasone. Remdesivir scheduled to complete on tomorrow. Continue antibiotics of Rocephin and azithromycin per ID recommendations. Patient currently on high flow nasal cannula of which was decreased from 20L/min to 12L/min last night and now 8 L/min this morning. Continue to wean oxygen and monitor closely. Continue heparin drip per pulmonary recommendations. Creatinine has increased from 2.1 to 2.7. Baseline creatinine reported to be 0.8 2019 per [facility] physician. Pt. likely has possible underlying CKD with hx HTN/DM. Renal ultrasound reveals findings consistent with medical renal disease. No evidence of hydronephrosis or renal mass. Nephrology following. I spoke with her daughter (Celina Mcclain at [phone]) and updated her with POC. [facility] physician called and asked for transfer to their facility under the care of Dr. Leal. Daughter and patient updated with regards to transfer. Dedicated discharge time 35 minutes. Disposition: [id number] [facility] IP Time spent for discharge: 35 - Discharge Diagnoses (1) Diabetes mellitus Status: Acute (2) Sepsis Status: Acute (3) Acute renal failure Status: Acute (4) Hyperglycemia Status: Acute (5) Acute respiratory failure with hypoxia Status: Chronic (6) Pneumonia due to COVID-19 virus Status: Chronic Core Measure Documentation - Palliative Care Palliative Care/ Comfort Measures: Not Applicable - Core Measures Any of the following diagnoses?: none Exam - Constitutional Vitals: Temp Pulse Resp BP Pulse Ox 98.3 F 65 18 122/53 94 11/28/20 06:00 11/28/20 10:07 11/28/20 06:00 11/28/20 10:07 11/28/20 09:21 General appearance: Present: no acute distress, well-nourished - EENT Eyes: Present: PERRL ENT: hearing intact, clear oral mucosa - Neck Neck: Present: supple, normal ROM - Respiratory Respiratory effort: normal Respiratory: bilateral: CTA - Cardiovascular Heart Sounds: Present: S1 & S2. Absent: rub, click - Extremities Extremities: pulses symmetrical, No edema Peripheral Pulses: within normal limits - Abdominal General gastrointestinal: Present: soft, non-tender, non-distended, normal bowel sounds Female genitourinary: Present: normal - Integumentary Integumentary: Present: clear, warm, dry - Musculoskeletal Musculoskeletal: gait normal, strength equal bilaterally - Psychiatric Psychiatric: appropriate mood/affect, intact judgment & insight - Neurologic Neurologic: CNII-XII intact, moves all extremities Plan Activity: advance as tolerated Weight Bearing Status: Weight Bear as Tolerated Diet: diabetic Follow up with: NGUYEN SALAZAR [Other] - 3-5 Days
[2020-11-28 12:09] VITALS: BP 140/70
== END 2020-11-28 14:21 | disposition short-term general hospital (02) | DRG 871 ==
LOC: ED 21:43 → 3A 11-25 00:03 → OBSVTOIN 11-25 08:54
PROVIDERS: ADMIT Internal Medicine Geriatric Medicine; ATTEND Hospitalist
PROC: XW033E5 Introduction of Remdesivir Anti-infective into Peripheral Vein, Percutaneous Approach, New Technology Group 5 (ICD-10-PCS; principal; 2020-11-25)
DX: A41.9 Sepsis, unspecified organism (principal); J18.9 Pneumonia, unspecified organism; J96.01 Acute respiratory failure with hypoxia; U07.1 COVID-19; N17.0 Acute kidney failure with tubular necrosis; I21.4 Non-ST elevation (NSTEMI) myocardial infarction; D68.9 Coagulation defect, unspecified; I16.0 Hypertensive urgency; Z20.822 Contact with and (suspected) exposure to COVID-19; R77.8 Other specified abnormalities of plasma proteins; Z79.899 Other long term (current) drug therapy; I10 Essential (primary) hypertension; Z79.891 Long term (current) use of opiate analgesic; Z79.01 Long term (current) use of anticoagulants; E66.9 Obesity, unspecified; E11.65 Type 2 diabetes mellitus with hyperglycemia; Z68.35 Body mass index [BMI] 35.0-35.9, adult; Z79.4 Long term (current) use of insulin; E66.01 Morbid (severe) obesity due to excess calories
CPT/HCPCS: 36415; 36600; 71045; 76770; 80048; 80053; 80061; 81001; 82010; 82140; 82728; 82803; 82805; 82947; 82962; 83036; 83615; 84145; 84484; 85014; 85018; 85025; 85049; 85379; 85520; 85610; 85730; 86140; 87040; 93005; 93970; 94760; 96365; 96375; G0378; J0360; J0696; J1100; J1644; J1815; J7030; J7040; J8540; U0003